=== PATIENT | female | born 1975 | race American Indian/Alaskan Native ===

== ENCOUNTER 2016-06-07 08:54 | Emergency (ER) | payer OTHER ==
[~2016-06-07 08:54] MED LIST: FIBE625T PO; MIRA3350 PO
[2016-06-07 10:24] LABS: BASO % 0.5 % (0.0-1.0); EOS # 0.1 K/mm3 (0.0-0.50); EOS % 2.2 % (0.0-3.0); LARGE UNSTAINED CELL % 1.4 % (0.0-4.0); LYMPH % 31.2 % (24.0-44.0); MEAN CORPUSCULAR HEMOGLOBIN 30.5 pg (27.0-33.0); MEAN CORPUSCULAR HGB CONC 32.6 g/dl (32.0-36.5); MEAN CORPUSCULAR VOLUME 93.5 fl (80.0-96.0); MONO # 0.1 K/mm3 (0.0-0.8); MONO % 4.4 % (0.0-5.0); NEUTROPHILS # 1.9 K/mm3 (1.8-7.7); NEUTROPHILS % 60.3 % (36.0-66.0); PLATELET COUNT, AUTOMATED 284 k/mm3 (150-450); RED CELL DISTRIBUTION WIDTH 12.3 % (11.5-14.5); WHITE BLOOD COUNT 3.2 K/mm3 (4.0-10.0)
[2016-06-07 10:39] LABS: ALBUMIN 4.4 GM/DL (3.2-5.2); ALBUMIN/GLOBULIN RATIO 1.16 (1.00-1.93); ALKALINE PHOSPHATASE 60 U/L (45-117); ALT/SGPT 21 U/L (12-78); AMYLASE 91 U/L (25-115); ANION GAP 10 MEQ/L (8-16); AST/SGOT 15 U/L (15-37); BILIRUBIN,DIRECT 0.2 MG/DL (0.0-0.2); BILIRUBIN,TOTAL 0.7 MG/DL (0.2-1.0); BLOOD UREA NITROGEN 7 MG/DL (7-18); CALCIUM LEVEL 9.6 MG/DL (8.5-10.1); CARBON DIOXIDE LEVEL 26 MEQ/L (21-32); CHLORIDE LEVEL 105 MEQ/L (98-107); CREATININE FOR GFR 0.82 MG/DL (0.55-1.02); GLOMERULAR FILTRATION RATE > 60.0 (>58); GLUCOSE, FASTING 92 MG/DL (70-105); SODIUM LEVEL 141 MEQ/L (136-145); TOTAL PROTEIN 8.2 GM/DL (6.4-8.2)
--- NOTE | 2016-06-07 11:31 | REP ---
Right upper quadrant sonography: History: Right upper quadrant pain. History of cholecystectomy. No comparison studies. Findings: Scanning through the right upper quadrant of the abdomen demonstrates a normal sized homogeneous liver without focal defect. Gallbladder is surgically absent. Common bile duct is normal measuring 0.3 cm in greatest diameter. No pancreatic abnormality is seen. There is no evidence of ascites or right renal abnormality. The right kidney measures 11.3 x 4.6 x 4.2 cm. Impression: Negative right upper quadrant sonography in this patient status post cholecystectomy. Signed by Tru Alexandre MD 06/07/2016 02:39 P
--- NOTE | 2016-06-07 11:33 | REP ---
Abdominal series: Three views. History: Right upper quadrant pain, pleurisy, question constipation. Findings: Upright chest radiograph is normal. There is no evidence of infiltrate or free subdiaphragmatic air. Heart size is normal. Supine and erect views of the abdomen show clips in the right upper quadrant as well as in the left flank and in the pelvis. Bowel gas pattern is normal. No air-fluid levels are seen. Flank stripes are intact. Psoas margins are symmetric. No bony abnormality is seen. Impression: Scattered postoperative clips. No acute abnormality. Signed by Tru Alexandre MD 06/07/2016 02:40 P
--- NOTE | 2016-06-07 11:42 | EDDOCDS ---
Nurse's Notes [facility] Name: Reshma Osei Age: 40 yrs Sex: Female : 1975 Arrival Date: 06/07/2016 Time: 08:54 Bed PR1 / 25 Private MD: Diagnosis: Pleurisy-VS MUSCLE STRAIN OF RIGHT INTERCOSTAL MUSCLES Presentation: 06/07 09:20 Presenting complaint: Patient states: c/o RUQ abd pain since Friday - was seen by PMD j Weds for same. today pain worse. denies nausea vomiting. pain constant dull pain. pain worse with deep inspiration. + cough. + hot / cold at home. Acute neurological deficits are not present. Mechanism of Injury: No Mechanism of Injury. Suicide/Homicide risk assessment- the patient denies having any suicidal and/or homicidal ideations and does not present with any other emotional, behavioral or mental health complaints. Status: The patient is a dependent. Transition of care: patient was not received from another setting of care. 09:20 Acuity: BRANDON Level 3 [facility] 09:20 Method Of Arrival: Walkin/Carried/Asstd [facility] 09:26 Adult Sepsis Screening: The patient does not have new or worsening altered mentation. bcj Patient's respiratory rate is less than 22. Systolic blood pressure is greater than 100. Patient has a qSOFA score of 0- Negative Sepsis Screen. Triage Assessment: 09:23 General: Appears in no apparent distress, comfortable, Behavior is cooperative. Pain: j Location: right lateral posterior chest and right lateral anterior chest Pain currently is 2 out of 10 on a pain scale. HIV screening NA for this visit Offered previously. Musculoskeletal: No deficits noted. 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 none - PMHx: none; - PSHx: Cholecystectomy; - Social history: Smoking status: Patient states was never smoker of tobacco. No barriers to communication noted, The patient speaks fluent Nigerien, Speaks appropriately for age. - Family history: Not pertinent. - : The pt / caregiver states he / she is not on anticoagulants. Home medication list is obtained from the patient. - Exposure Risk Screening:: None identified. Screenin:40 Screening information is obtained from the patient. Fall risk: No risks identified. [facility] Assistance ADL's: requires no assistance with activities of daily living. Abuse/DV Screen: The patient / caregiver reports he/she is: not in a situation that causes fear, pain or injury. Nutritional screening: No deficits noted. Advance Directives: Currently, there is no health care proxy. There is no active DNR order. There is no living will. There is no Power of Gasoline Service Attendant. Advance directive information has not previously been placed in an [facility] medical record. Further advance directive information is declined. home support is adequate. Assessment: 11:39 General: Appears in no apparent distress, Behavior is cooperative. Pain: Location: [facility] right upper quadrant Pain currently is 6 out of 10 on a pain scale. Neurological: Level of Consciousness is awake, alert, Oriented to person, place, time. Respiratory: Airway is patent Respiratory effort is even, unlabored, Respiratory pattern is regular, symmetrical, Breath sounds are clear bilaterally. GI: Bowel sounds present X 4 quads. Vital Signs: 09:26 BP 117 / 89; Pulse 91; Resp 16; Temp 99.4(O); Pulse Ox 99% on R/A; Weight 81.19 kg; [facility] Height 5 ft. 11 in. (180.34 cm); Pain 2/10; 11:18 BP 110 / 72; Pulse 76; Resp 18; Temp 97.6(O); Pulse Ox 100% on R/A; Pain 2/10; ct3 09:26 Body Mass Index 24.97 (81.19 kg, 180.34 cm) [facility] Vitals: 09:23 Log In Time: June 07, 2016 at 08:50. [facility] ED Course: 08:55 Patient visited by Radha Loo. mm15 08:55 Patient moved to Waiting mm15 09:13 Patient moved to Pre E elp 09:22 Triage Initiated bcj 09:24 Patient visited by Supa Bishop RN. bcj 09:26 Patient moved to Triage 1 bc 09:27 Patient visited by Supa Bishop RN. j 09:27 [facility]ust[facility] ar2 09:27 Florencio Ken MD is Attending Physician. ar2 09:39 Patient visited by Agustín Dutton PA-C. ar2 10:07 Patient moved to TR2 dwg 10:07 D-Dimer Quant Sent. dwg 10:07 Amylase Sent. dwg 10:07 Basic Metabolic Profile Sent. dwg 10:07 CBC with Diff Sent. dwg 10:07 Lipase Sent. dwg 10:07 Liver Profile Sent. dwg 10:47 Patient visited by Isamar Logan PCA. ct3 11:10 Patient moved to jmk 11:18 Patient visited by Isamar Logan PCA. ct3 11:41 The patient / caregiver is instructed regarding the plan of care and ED course. dwg 11:41 No IV's were initiated during this patient's visit. No procedures done that require dwg assistance. Order Results: Lab Order: Amylase; SPEC'M 06/07/16 10:07 Test: AMYLASE; Value: 91; Range: 25-115; Units: U/L; Status: F Lab Order: Basic Metabolic Profile; SPEC'M 06/07/16 10:07 Test: GLUCOSE, FASTING; Value: 92; Range: 70-105; Units: MG/DL; Status: F Test: BLOOD UREA NITROGEN; Value: 7; Range: 7-18; Units: MG/DL; Status: F Test: CREATININE FOR GFR; Value: 0.82; Range: 0.55-1.02; Units: MG/DL; Status: F Test: GLOMERULAR FILTRATION RATE; Value: > 60.0; Range: >58; Status: F Test: SODIUM LEVEL; Value: 141; Range: 136-145; Units: MEQ/L; Status: F Test: POTASSIUM SERUM; Value: 4.0; Range: 3.5-5.1; Units: MEQ/L; Status: F Test: CHLORIDE LEVEL; Value: 105; Range: 98-107; Units: MEQ/L; Status: F Test: CARBON DIOXIDE LEVEL; Value: 26; Range: 21-32; Units: MEQ/L; Status: F Test: ANION GAP; Value: 10; Range: 8-16; Units: MEQ/L; Status: F Test: CALCIUM LEVEL; Value: 9.6; Range: 8.5-10.1; Units: MG/DL; Status: F Test Note: ; Units are mL/min/1.73 m2 Chronic Kidney Disease Staging per NKF: Stage I & II GFR >=60 Normal to Mildly Decreased Stage III GFR 30-59 Moderately Decreased Stage IV GFR 15-29 Severely Decreased Stage V GFR <15 Very Little GFR Left ESRD GFR <15 on LEAD FABRICATOR Lab Order: CBC with Diff; SPEC'M 06/07/16 10:07 Test: WHITE BLOOD COUNT; Value: 3.2; Range: 4.0-10.0; Abnormal: Below low normal; Units: K/mm3; Status: F Test: RED BLOOD COUNT; Value: 4.11; Range: 4.00-5.40; Units: M/mm3; Status: F Test: HEMOGLOBIN; Value: 12.5; Range: 12.0-16.0; Units: g/dl; Status: F Test: HEMATOCRIT; Value: 38.5; Range: 36.0-47.0; Units: %; Status: F Test: MEAN CORPUSCULAR VOLUME; Value: 93.5; Range: 80.0-96.0; Units: fl; Status: F Test: MEAN CORPUSCULAR HEMOGLOBIN; Value: 30.5; Range: 27.0-33.0; Units: pg; Status: F Test: MEAN CORPUSCULAR HGB CONC; Value: 32.6; Range: 32.0-36.5; Units: g/dl; Status: F Test: RED CELL DISTRIBUTION WIDTH; Value: 12.3; Range: 11.5-14.5; Units: %; Status: F Test: PLATELET COUNT, AUTOMATED; Value: 284; Range: 150-450; Units: k/mm3; Status: F Test: NEUTROPHILS %; Value: 60.3; Range: 36.0-66.0; Units: %; Status: F Test: LYMPH %; Value: 31.2; Range: 24.0-44.0; Units: %; Status: F Test: MONO %; Value: 4.4; Range: 0.0-5.0; Units: %; Status: F Test: EOS %; Value: 2.2; Range: 0.0-3.0; Units: %; Status: F Test: BASO %; Value: 0.5; Range: 0.0-1.0; Units: %; Status: F Test: LARGE UNSTAINED CELL %; Value: 1.4; Range: 0.0-4.0; Units: %; Status: F Test: NEUTROPHILS #; Value: 1.9; Range: 1.8-7.7; Units: K/mm3; Status: F Test: LYMPH #; Value: 1.0; Range: 1.5-4.5; Abnormal: Below low normal; Units: K/mm3; Status: F Test: MONO #; Value: 0.1; Range: 0.0-0.8; Units: K/mm3; Status: F Test: EOS #; Value: 0.1; Range: 0.0-0.50; Units: K/mm3; Status: F Test: BASO #; Value: 0.0; Range: 0.0-0.2; Units: K/mm3; Status: F Test: LARGE UNSTAINED CELL #; Value: 0.0; Range: 0.0-0.4; Units: K/mm3; Status: F Lab Order: Lipase; SPEC'M 06/07/16 10:07 Test: LIPASE; Value: 85; Range: 73-393; Units: U/L; Status: F Lab Order: Liver Profile; SPEC'M 06/07/16 10:07 Test: AST/SGOT; Value: 15; Range: 15-37; Units: U/L; Status: F Test: ALT/SGPT; Value: 21; Range: 12-78; Units: U/L; Status: F Test: ALKALINE PHOSPHATASE; Value: 60; Range: 45-117; Units: U/L; Status: F Test: BILIRUBIN,TOTAL; Value: 0.7; Range: 0.2-1.0; Units: MG/DL; Status: F Test: BILIRUBIN,DIRECT; Value: 0.2; Range: 0.0-0.2; Units: MG/DL; Status: F Test: TOTAL PROTEIN; Value: 8.2; Range: 6.4-8.2; Units: GM/DL; Status: F Test: ALBUMIN; Value: 4.4; Range: 3.2-5.2; Units: GM/DL; Status: F Test: ALBUMIN/GLOBULIN RATIO; Value: 1.16; Range: 1.00-1.93; Status: F Lab Order: D-Dimer Quant; SPEC'M 06/07/16 10:07 Test: D-DIMER QUANT; Value: 294.9; Range: <500; Units: ng/ml; Status: F Outcome: 11:29 Discharge ordered by Provider. ar2 11:41 Discharge Assessment: Patient awake, alert and oriented x 3. No cognitive and/or dwg functional deficits noted. Patient verbalized understanding of disposition instructions. patient administered narcotics - no. The following High Risk Discharge criteria are identified: None. Discharged to home ambulatory. Condition: good Condition: stable. No special radiology studies were completed. Property sent home with patient. 11:41 Patient left the ED. dwg Signatures: Luis Nichols, RN RN Supa Moy, RN RN Jeremías Phelps,RN RN Agustín Garrett, MEAGHAN PA-Juana ar2 Isamar Logan, CERTIFIED INDUSTRIAL HYGIENIST CERTIFIED INDUSTRIAL HYGIENIST ct3 Radha Loo mm15 Janett Forte, CERTIFIED INDUSTRIAL HYGIENIST CERTIFIED INDUSTRIAL HYGIENIST elp MTDD
--- NOTE | 2016-06-07 11:42 | EDDOCDS ---
Physician Documentation [facility] Name: Reshma Osei Age: 40 yrs Sex: Female : 1975 Arrival Date: 06/07/2016 Time: 08:54 Bed PR Private MD: Disposition: 06/07/16 11:29 Discharged to Home/Self Care. Impression: Pleurisy - VS MUSCLE STRAIN OF RIGHT INTERCOSTAL MUSCLES. - Condition is Stable. - Discharge Instructions: Muscle Strain, Pleurisy. - Medication Reconciliation, Local Pharmacy Hours form. - Follow up: Private Physician; When: Call to arrange an appointment; Reason: Recheck today's complaints. Follow up: Emergency Department; When: As needed; Reason: Fever > 102F, Trouble breathing, Worsening of conditions. - Problem is new. - Symptoms are unchanged. Historical: - Allergies: no known allergies; - Home Meds: 1. none - PMHx: none; - PSHx: Cholecystectomy; - Social history: Smoking status: Patient states was never smoker of tobacco. No barriers to communication noted, The patient speaks fluent German, Speaks appropriately for age. - Family history: Not pertinent. - : The pt / caregiver states he / she is not on anticoagulants. Home medication list is obtained from the patient. - Exposure Risk Screening:: None identified. 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 11 in. (180.34 cm); Pain 2/10; 11:18 BP 110 / 72; Pulse 76; Resp 18; Temp 97.6(O); Pulse Ox 100% on R/A; Pain 2/10; ct3 09:26 Body Mass Index 24.97 (81.19 kg, 180.34 cm) [facility] MDM: 09:51 Amylase Ordered. EDMS 09:51 Basic Metabolic Profile Ordered. EDMS 09:51 CBC with Diff Ordered. EDMS 09:51 Lipase Ordered. EDMS 09:51 Liver Profile Ordered. EDMS 09:51 Liver US Ordered. EDMS 09:51 Abdomen, Flat\E\Upright,PA Chest Ordered. EDMS 09:52 D-Dimer Quant Ordered. EDMS 10:10 Financial registration complete. mm15 10:54 CBC with Diff Reviewed. ar2 10:54 Amylase Reviewed. ar2 10:54 Basic Metabolic Profile Reviewed. ar2 10:54 Lipase Reviewed. ar2 10:54 Liver Profile Reviewed. ar2 10:54 D-Dimer Quant Reviewed. ar2 Signatures: Dispatcher [employer] [facility] Luis Nichols RN RN dwg Johnson, Bruce, RN RN Agustín Ruvalcaba, PA-Juana PA-C ar2 Radha Loo mm15 MTDD
--- NOTE | 2016-06-09 12:42 | EDDOCDS ---
Nurse's Notes [facility] Name: Reshma Osei Age: 40 yrs Sex: Female : 1975 Arrival Date: 06/07/2016 Time: 08:54 Bed PR1 / 25 Private MD: Diagnosis: Pleurisy-VS MUSCLE STRAIN OF RIGHT INTERCOSTAL MUSCLES Presentation: 06/07 09:20 Presenting complaint: Patient states: c/o RUQ abd pain since Friday - was seen by PMD j Weds for same. today pain worse. denies nausea vomiting. pain constant dull pain. pain worse with deep inspiration. + cough. + hot / cold at home. Acute neurological deficits are not present. Mechanism of Injury: No Mechanism of Injury. Suicide/Homicide risk assessment- the patient denies having any suicidal and/or homicidal ideations and does not present with any other emotional, behavioral or mental health complaints. Status: The patient is a dependent. Transition of care: patient was not received from another setting of care. 09:20 Acuity: BRANDON Level 3 [facility] 09:20 Method Of Arrival: Walkin/Carried/Asstd [facility] 09:26 Adult Sepsis Screening: The patient does not have new or worsening altered mentation. bcj Patient's respiratory rate is less than 22. Systolic blood pressure is greater than 100. Patient has a qSOFA score of 0- Negative Sepsis Screen. Triage Assessment: 09:23 General: Appears in no apparent distress, comfortable, Behavior is cooperative. Pain: j Location: right lateral posterior chest and right lateral anterior chest Pain currently is 2 out of 10 on a pain scale. HIV screening NA for this visit Offered previously. Musculoskeletal: No deficits noted. 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 none - PMHx: none; - PSHx: Cholecystectomy; - Social history: Smoking status: Patient states was never smoker of tobacco. No barriers to communication noted, The patient speaks fluent Anguillan, Speaks appropriately for age. - Family history: Not pertinent. - : The pt / caregiver states he / she is not on anticoagulants. Home medication list is obtained from the patient. - Exposure Risk Screening:: None identified. Screenin:40 Screening information is obtained from the patient. Fall risk: No risks identified. [facility] Assistance ADL's: requires no assistance with activities of daily living. Abuse/DV Screen: The patient / caregiver reports he/she is: not in a situation that causes fear, pain or injury. Nutritional screening: No deficits noted. Advance Directives: Currently, there is no health care proxy. There is no active DNR order. There is no living will. There is no Power of Marketing Finance Specialist. Advance directive information has not previously been placed in an [facility] medical record. Further advance directive information is declined. home support is adequate. Assessment: 11:39 General: Appears in no apparent distress, Behavior is cooperative. Pain: Location: [facility] right upper quadrant Pain currently is 6 out of 10 on a pain scale. Neurological: Level of Consciousness is awake, alert, Oriented to person, place, time. Respiratory: Airway is patent Respiratory effort is even, unlabored, Respiratory pattern is regular, symmetrical, Breath sounds are clear bilaterally. GI: Bowel sounds present X 4 quads. Vital Signs: 09:26 BP 117 / 89; Pulse 91; Resp 16; Temp 99.4(O); Pulse Ox 99% on R/A; Weight 81.19 kg; [facility] Height 5 ft. 11 in. (180.34 cm); Pain 2/10; 11:18 BP 110 / 72; Pulse 76; Resp 18; Temp 97.6(O); Pulse Ox 100% on R/A; Pain 2/10; ct3 09:26 Body Mass Index 24.97 (81.19 kg, 180.34 cm) [facility] Vitals: 09:23 Log In Time: June 07, 2016 at 08:50. [facility] ED Course: 08:55 Patient visited by Radha Loo. mm15 08:55 Patient moved to Waiting mm15 09:13 Patient moved to Pre E elp 09:22 Triage Initiated bcj 09:24 Patient visited by Supa Bishop RN. bcj 09:26 Patient moved to Triage 1 bc 09:27 Patient visited by Supa Bishop RN. j 09:27 Agustín Dutton [facility]-C [facility]. ar2 09:27 Florencio Ken MD is Attending Physician. ar2 09:39 Patient visited by Agustín Dutton PA-C. ar2 10:07 Patient moved to TR2 dwg 10:07 D-Dimer Quant Sent. dwg 10:07 Amylase Sent. dwg 10:07 Basic Metabolic Profile Sent. dwg 10:07 CBC with Diff Sent. dwg 10:07 Lipase Sent. dwg 10:07 Liver Profile Sent. dwg 10:47 Patient visited by Isamar Logan PCA. ct3 11:10 Patient moved to PR / jmk 11:18 Patient visited by Isamar Logan PCA. ct3 11:41 The patient / caregiver is instructed regarding the plan of care and ED course. dwg 11:41 No IV's were initiated during this patient's visit. No procedures done that require dwg assistance. 11:50 [facility] Payment Agreement was scanned into [employer] and attached to record. mm15 12:05 Liver US Returned. EDMS 12:05 Abdomen, Flat\E\Upright,PA Chest Returned. EDMS 14:28 T-Sheet-- Draft Copy was scanned into [employer] and attached to record. gb 14:28 Radiology Report was scanned into [employer] and attached to record. gb Order Results: Lab Order: Amylase; SPEC'M 06/07/16 10:07 Test: AMYLASE; Value: 91; Range: 25-115; Units: U/L; Status: F Lab Order: Basic Metabolic Profile; SPEC'M 06/07/16 10:07 Test: GLUCOSE, FASTING; Value: 92; Range: 70-105; Units: MG/DL; Status: F Test: BLOOD UREA NITROGEN; Value: 7; Range: 7-18; Units: MG/DL; Status: F Test: CREATININE FOR GFR; Value: 0.82; Range: 0.55-1.02; Units: MG/DL; Status: F Test: GLOMERULAR FILTRATION RATE; Value: > 60.0; Range: >58; Status: F Test: SODIUM LEVEL; Value: 141; Range: 136-145; Units: MEQ/L; Status: F Test: POTASSIUM SERUM; Value: 4.0; Range: 3.5-5.1; Units: MEQ/L; Status: F Test: CHLORIDE LEVEL; Value: 105; Range: 98-107; Units: MEQ/L; Status: F Test: CARBON DIOXIDE LEVEL; Value: 26; Range: 21-32; Units: MEQ/L; Status: F Test: ANION GAP; Value: 10; Range: 8-16; Units: MEQ/L; Status: F Test: CALCIUM LEVEL; Value: 9.6; Range: 8.5-10.1; Units: MG/DL; Status: F Test Note: ; Units are mL/min/1.73 m2 Chronic Kidney Disease Staging per NKF: Stage I & II GFR >=60 Normal to Mildly Decreased Stage III GFR 30-59 Moderately Decreased Stage IV GFR 15-29 Severely Decreased Stage V GFR <15 Very Little GFR Left ESRD GFR <15 on TECHNOLOGY DEVELOPMENT INTERN Lab Order: CBC with Diff; SPEC'M 06/07/16 10:07 Test: WHITE BLOOD COUNT; Value: 3.2; Range: 4.0-10.0; Abnormal: Below low normal; Units: K/mm3; Status: F Test: RED BLOOD COUNT; Value: 4.11; Range: 4.00-5.40; Units: M/mm3; Status: F Test: HEMOGLOBIN; Value: 12.5; Range: 12.0-16.0; Units: g/dl; Status: F Test: HEMATOCRIT; Value: 38.5; Range: 36.0-47.0; Units: %; Status: F Test: MEAN CORPUSCULAR VOLUME; Value: 93.5; Range: 80.0-96.0; Units: fl; Status: F Test: MEAN CORPUSCULAR HEMOGLOBIN; Value: 30.5; Range: 27.0-33.0; Units: pg; Status: F Test: MEAN CORPUSCULAR HGB CONC; Value: 32.6; Range: 32.0-36.5; Units: g/dl; Status: F Test: RED CELL DISTRIBUTION WIDTH; Value: 12.3; Range: 11.5-14.5; Units: %; Status: F Test: PLATELET COUNT, AUTOMATED; Value: 284; Range: 150-450; Units: k/mm3; Status: F Test: NEUTROPHILS %; Value: 60.3; Range: 36.0-66.0; Units: %; Status: F Test: LYMPH %; Value: 31.2; Range: 24.0-44.0; Units: %; Status: F Test: MONO %; Value: 4.4; Range: 0.0-5.0; Units: %; Status: F Test: EOS %; Value: 2.2; Range: 0.0-3.0; Units: %; Status: F Test: BASO %; Value: 0.5; Range: 0.0-1.0; Units: %; Status: F Test: LARGE UNSTAINED CELL %; Value: 1.4; Range: 0.0-4.0; Units: %; Status: F Test: NEUTROPHILS #; Value: 1.9; Range: 1.8-7.7; Units: K/mm3; Status: F Test: LYMPH #; Value: 1.0; Range: 1.5-4.5; Abnormal: Below low normal; Units: K/mm3; Status: F Test: MONO #; Value: 0.1; Range: 0.0-0.8; Units: K/mm3; Status: F Test: EOS #; Value: 0.1; Range: 0.0-0.50; Units: K/mm3; Status: F Test: BASO #; Value: 0.0; Range: 0.0-0.2; Units: K/mm3; Status: F Test: LARGE UNSTAINED CELL #; Value: 0.0; Range: 0.0-0.4; Units: K/mm3; Status: F Lab Order: Lipase; SPEC'M 06/07/16 10:07 Test: LIPASE; Value: 85; Range: 73-393; Units: U/L; Status: F Lab Order: Liver Profile; SPEC'M 06/07/16 10:07 Test: AST/SGOT; Value: 15; Range: 15-37; Units: U/L; Status: F Test: ALT/SGPT; Value: 21; Range: 12-78; Units: U/L; Status: F Test: ALKALINE PHOSPHATASE; Value: 60; Range: 45-117; Units: U/L; Status: F Test: BILIRUBIN,TOTAL; Value: 0.7; Range: 0.2-1.0; Units: MG/DL; Status: F Test: BILIRUBIN,DIRECT; Value: 0.2; Range: 0.0-0.2; Units: MG/DL; Status: F Test: TOTAL PROTEIN; Value: 8.2; Range: 6.4-8.2; Units: GM/DL; Status: F Test: ALBUMIN; Value: 4.4; Range: 3.2-5.2; Units: GM/DL; Status: F Test: ALBUMIN/GLOBULIN RATIO; Value: 1.16; Range: 1.00-1.93; Status: F Lab Order: D-Dimer Quant; HAMLET 06/07/16 10:07 Test: D-DIMER QUANT; Value: 294.9; Range: <500; Units: ng/ml; Status: F Radiology Order: Abdomen, Flat\E\Upright,PA Chest Test: Abdomen, Flat\E\Upright,PA Chest REASON FOR EXAMINATION: RUQ/pleurisy/? constipation; Abdominal series: Three views.; ; History: Right upper quadrant pain, pleurisy, question constipation.; ; Findings: Upright chest radiograph is normal. There is no evidence of; infiltrate or free subdiaphragmatic air. Heart size is normal.; ; Supine and erect views of the abdomen show clips in the right upper quadrant as; well as in the left flank and in the pelvis. Bowel gas pattern is normal. No; air-fluid levels are seen. Flank stripes are intact. Psoas margins are; symmetric. No bony abnormality is seen.; ; Impression:; ; Scattered postoperative clips. No acute abnormality.; ; ; Signed by; Tru Alexandre MD 06/07/2016 02:40 P; Radiology Order: Liver US Test: Liver US REASON FOR EXAMINATION: ruq pain, hx cholecystectomy; Right upper quadrant sonography:; ; History: Right upper quadrant pain. History of cholecystectomy. No comparison; studies.; ; Findings: Scanning through the right upper quadrant of the abdomen demonstrates; a normal sized homogeneous liver without focal defect. Gallbladder is surgically; absent. Common bile duct is normal measuring 0.3 cm in greatest diameter. No; pancreatic abnormality is seen. There is no evidence of ascites or right renal; abnormality. The right kidney measures 11.3 x 4.6 x 4.2 cm.; ; Impression:; ; Negative right upper quadrant sonography in this patient status post; cholecystectomy.; ; ; Signed by; Tru Alexandre MD 06/07/2016 02:39 P; Outcome: 11:29 Discharge ordered by Provider. ar2 11:41 Discharge Assessment: Patient awake, alert and oriented x 3. No cognitive and/or dwg functional deficits noted. Patient verbalized understanding of disposition instructions. patient administered narcotics - no. The following High Risk Discharge criteria are identified: None. Discharged to home ambulatory. Condition: good Condition: stable. No special radiology studies were completed. Property sent home with patient. 11:41 Patient left the ED. g Signatures: Dispatcher [employer] Luis Schmidt RN RN dwg Johnson, Bruce RN RN Jeremías Phelps,RN RN Rachel Conklin, [place] Reg Agustín Macdonald PA-C PAHannah ar2 Logan, Isamar, CHASSIS MECHANIC CHASSIS MECHANIC ct3 Loo, Mitrann mm15 Patchen, Janett, CHASSIS MECHANIC CHASSIS MECHANIC elp Chart Complete MTDD
--- NOTE | 2016-06-09 12:42 | EDDOCDS ---
Physician Documentation [facility] Name: Reshma Osei Age: 40 yrs Sex: Female : 1975 Arrival Date: 06/07/2016 Time: 08:54 Bed PR Private MD: Disposition: 06/07/16 11:29 Discharged to Home/Self Care. Impression: Pleurisy - VS MUSCLE STRAIN OF RIGHT INTERCOSTAL MUSCLES. - Condition is Stable. - Discharge Instructions: Muscle Strain, Pleurisy. - Medication Reconciliation, Local Pharmacy Hours form. - Follow up: Private Physician; When: Call to arrange an appointment; Reason: Recheck today's complaints. Follow up: Emergency Department; When: As needed; Reason: Fever > 102F, Trouble breathing, Worsening of conditions. - Problem is new. - Symptoms are unchanged. Historical: - Allergies: no known allergies; - Home Meds: 1. none - PMHx: none; - PSHx: Cholecystectomy; - Social history: Smoking status: Patient states was never smoker of tobacco. No barriers to communication noted, The patient speaks fluent Argentine, Speaks appropriately for age. - Family history: Not pertinent. - : The pt / caregiver states he / she is not on anticoagulants. Home medication list is obtained from the patient. - Exposure Risk Screening:: None identified. 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 11 in. (180.34 cm); Pain 2/10; 11:18 BP 110 / 72; Pulse 76; Resp 18; Temp 97.6(O); Pulse Ox 100% on R/A; Pain 2/10; ct3 09:26 Body Mass Index 24.97 (81.19 kg, 180.34 cm) [facility] MDM: 09:51 Amylase Ordered. EDMS 09:51 Basic Metabolic Profile Ordered. EDMS 09:51 CBC with Diff Ordered. EDMS 09:51 Lipase Ordered. EDMS 09:51 Liver Profile Ordered. EDMS 09:51 Liver US Ordered. EDMS 09:51 Abdomen, Flat\E\Upright,PA Chest Ordered. EDMS 09:52 D-Dimer Quant Ordered. EDMS 10:10 Financial registration complete. mm15 10:54 CBC with Diff Reviewed. ar2 10:54 Amylase Reviewed. ar2 10:54 Basic Metabolic Profile Reviewed. ar2 10:54 Lipase Reviewed. ar2 10:54 Liver Profile Reviewed. ar2 10:54 D-Dimer Quant Reviewed. ar2 11:50 [facility] Payment Agreement was scanned into [employer] and attached to record. mm15 14:28 T-Sheet-- Draft Copy was scanned into [employer] and attached to record. gb 14:28 Radiology Report was scanned into [employer] and attached to record. gb Signatures: Dispatcher [employer] EDMS Luis Nichols RN RN Supa Moy RN RN Rachel Whalen, Reg Reg gb Agustín Dutton, MEAGHAN HARDING ar2 Radha Loo mm15 The chart was reviewed and I authenticate all verbal orders and agree with the evaluation and treatment provided.Attachments: 11:50 [facility] Payment Agreement mm15 14:28 T-Sheet-- Draft Copy gb Chart Complete MTDD
--- NOTE | 2016-06-09 12:42 | EDDOCDS ---
Physician Documentation [facility] Name: Reshma Osei Age: 40 yrs Sex: Female : 1975 Arrival Date: 06/07/2016 Time: 08:54 Bed PR Private MD: Disposition: 06/07/16 11:29 Discharged to Home/Self Care. Impression: Pleurisy - VS MUSCLE STRAIN OF RIGHT INTERCOSTAL MUSCLES. - Condition is Stable. - Discharge Instructions: Muscle Strain, Pleurisy. - Medication Reconciliation, Local Pharmacy Hours form. - Follow up: Private Physician; When: Call to arrange an appointment; Reason: Recheck today's complaints. Follow up: Emergency Department; When: As needed; Reason: Fever > 102F, Trouble breathing, Worsening of conditions. - Problem is new. - Symptoms are unchanged. Historical: - Allergies: no known allergies; - Home Meds: 1. none - PMHx: none; - PSHx: Cholecystectomy; - Social history: Smoking status: Patient states was never smoker of tobacco. No barriers to communication noted, The patient speaks fluent Omani, Speaks appropriately for age. - Family history: Not pertinent. - : The pt / caregiver states he / she is not on anticoagulants. Home medication list is obtained from the patient. - Exposure Risk Screening:: None identified. 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 11 in. (180.34 cm); Pain 2/10; 11:18 BP 110 / 72; Pulse 76; Resp 18; Temp 97.6(O); Pulse Ox 100% on R/A; Pain 2/10; ct3 09:26 Body Mass Index 24.97 (81.19 kg, 180.34 cm) [facility] MDM: 09:51 Amylase Ordered. EDMS 09:51 Basic Metabolic Profile Ordered. EDMS 09:51 CBC with Diff Ordered. EDMS 09:51 Lipase Ordered. EDMS 09:51 Liver Profile Ordered. EDMS 09:51 Liver US Ordered. EDMS 09:51 Abdomen, Flat\E\Upright,PA Chest Ordered. EDMS 09:52 D-Dimer Quant Ordered. EDMS 10:10 Financial registration complete. mm15 10:54 CBC with Diff Reviewed. ar2 10:54 Amylase Reviewed. ar2 10:54 Basic Metabolic Profile Reviewed. ar2 10:54 Lipase Reviewed. ar2 10:54 Liver Profile Reviewed. ar2 10:54 D-Dimer Quant Reviewed. ar2 11:50 [facility] Payment Agreement was scanned into [employer] and attached to record. mm15 14:28 T-Sheet-- Draft Copy was scanned into [employer] and attached to record. gb 14:28 Radiology Report was scanned into [employer] and attached to record. gb Signatures: Dispatcher [employer] EDMS Luis Nichols RN RN Supa Moy RN RN Rachel Whalen, Reg Reg gb Agustín Dutton, MEAGHAN HARDING ar2 Radha Loo mm15 The chart was reviewed and I authenticate all verbal orders and agree with the evaluation and treatment provided.Attachments: 11:50 [facility] Payment Agreement mm15 14:28 T-Sheet-- Draft Copy gb Chart Complete MTDD
== END 2016-06-07 11:41 | disposition home or self-care (01) ==
LOC: M ED 08:54
DX: R09.1 Pleurisy (principal); S29.011A Strain of muscle and tendon of front wall of thorax, initial encounter; X58.XXXA Exposure to other specified factors, initial encounter; Y92.89 Other specified places as the place of occurrence of the external cause; Y93.89 Activity, other specified; Y99.8 Other external cause status; K59.00 Constipation, unspecified

== ENCOUNTER → 2016-07-22 | Outpatient (CLI) | payer OTHER ==
--- NOTE | 2016-07-22 16:16 | REP ---
HYSTER SONOGRAPHY: History: Abnormal uterine bleeding. No comparison studies. Procedure: Transvaginal sonography is performed prior to and following the insertion of endometrial catheter by the referring bilingual counter sales retail. Saline was injected and real time scanning was performed in my presence. Findings: Pre-injection imaging demonstrates mild uterine enlargement with dimensions of 10.4 x 7.4 x 7.8 cm. Uterine texture is somewhat heterogeneous. There is a 3.4 x 2.3 x 3.2 cm presumed fibroid posteriorly. Endometrial echo is 1.2 cm thick. Right ovary measures 5.5 x 4.4 x 5.0 cm. There is a 4.3 x 3.7 x 4.5 cm cyst in the right ovary. Left ovary measures 2.1 x 2.0 x 3.3 cm. It has a normal appearance. Resistive indices are normal at 0.46 on the right and 0.51 on the left. Post endometrial catheterization imaging shows distension of the endometrial cavity with saline. There is a nodular excrescence from the posterior fundal uterine endometrial surface. This polypoid lesion measures 16 x 7 x 16 mm. Endometrium is otherwise felt to be smooth. Impression: 1. Presumed 3.4 cm fibroid. Uterine enlargement. 2. 4.5 cm simple cyst right ovary. 3. 16 mm endometrial polyp posteriorly in the uterine fundus. Signed by Tru Alexandre MD 07/22/2016 07:45 P
== END ==
LOC: M RADPRO 13:18
PROVIDERS: ATTEND Student in an Organized Health Care Education/Training Program
DX: N85.2 Hypertrophy of uterus (principal); N83.201 Unspecified ovarian cyst, right side; N84.0 Polyp of corpus uteri

== ENCOUNTER 2016-09-23 07:50 | Emergency (ER) | payer OTHER ==
[~2016-09-23] VITALS: Ht 180.3 cm; Wt 78.0 kg
[~2016-09-23 07:50] MED LIST changes: +IBUP800T23 PO
[2016-09-23] MEDS ORDERED: NS 500 ML IV ONE (08:15)
[2016-09-23 08:48] LABS: BASO % 1.1 % (0.0-1.0); EOS # 0.2 K/mm3 (0.0-0.50); EOS % 3.6 % (0.0-3.0); LARGE UNSTAINED CELL # 0.1 K/mm3 (0.0-0.4); LARGE UNSTAINED CELL % 1.3 % (0.0-4.0); LYMPH # 1.1 K/mm3 (1.5-4.5); LYMPH % 25.1 % (24.0-44.0); MEAN CORPUSCULAR HEMOGLOBIN 29.6 pg (27.0-33.0); MEAN CORPUSCULAR HGB CONC 32.1 g/dl (32.0-36.5); MEAN CORPUSCULAR VOLUME 92.4 fl (80.0-96.0); MONO # 0.2 K/mm3 (0.0-0.8); MONO % 3.9 % (0.0-5.0); NEUTROPHILS # 2.8 K/mm3 (1.8-7.7); NEUTROPHILS % 64.9 % (36.0-66.0); PLATELET COUNT, AUTOMATED 313 k/mm3 (150-450); RED CELL DISTRIBUTION WIDTH 13.2 % (11.5-14.5); WHITE BLOOD COUNT 4.3 K/mm3 (4.0-10.0)
[2016-09-23 09:15] LABS: ALBUMIN 4.5 GM/DL (3.2-5.2); ALBUMIN/GLOBULIN RATIO 1.02 (1.00-1.93); ALKALINE PHOSPHATASE 62 U/L (45-117); ALT/SGPT 16 U/L (12-78); ANION GAP 7 MEQ/L (8-16); AST/SGOT 13 U/L (15-37); BILIRUBIN,TOTAL 0.7 MG/DL (0.2-1.0); BLOOD UREA NITROGEN 7 MG/DL (7-18); CALCIUM LEVEL 9.6 MG/DL (8.5-10.1); CARBON DIOXIDE LEVEL 27 MEQ/L (21-32); CHLORIDE LEVEL 103 MEQ/L (98-107); CREATININE FOR GFR 0.81 MG/DL (0.55-1.02); GLOMERULAR FILTRATION RATE > 60.0 (>58); GLUCOSE, FASTING 83 MG/DL (70-105); POTASSIUM SERUM 3.7 MEQ/L (3.5-5.1); SODIUM LEVEL 137 MEQ/L (136-145); TOTAL PROTEIN 8.9 GM/DL (6.4-8.2)
[2016-09-23 10:08] LABS: CONTROL LINE HCG INT CTR LINE PRESENT
[2016-09-23] MEDS ORDERED: ISOVUE-370 76% 100ML VIAL (Q9967) As Ordered ONE (10:44)
[2016-09-23 10:48] LABS: BILIRUBIN,DIRECT 0.2 MG/DL (0.0-0.2)
--- NOTE | 2016-09-23 11:53 | REP ---
CT ANGIOGRAM CHEST: TECHNIQUE: Axial contrast enhanced images from the thoracic inlet to the upper abdomen using 100 mL Isovue 370 intravenous contrast material with multiplanar reformations. Tiny 3 mm nodular opacity in the left lower lobe on image 41 is of doubtful significance. There is a tiny calcified granuloma in the right lower lobe more inferiorly. There is no infiltrate in either lung. There is no infiltrate in either lung. There is no CT evidence of pulmonary embolism. No enlarged lymph nodes are seen in the chest. Heart is not enlarged. There is no pleural or pericardial effusion. Visualized upper abdominal structures appear unremarkable. IMPRESSION: No CT evidence of pulmonary embolism. Signed by Luis Cid MD 09/24/2016 04:02 P
[2016-09-23] MEDS ORDERED: ZOFR4TAB3 PO (12:51)
[2016-09-23] MEDS ORDERED: PERC5TAB6 PO (12:52)
[2016-09-23] MEDS ORDERED: OMEP40CA2 PO (12:52)
[2016-09-23] MEDS ORDERED: PANTOPRAZOLE 40MG INJ (PROTONIX) (C9113) IV ONE (13:00)
[2016-09-23] MEDS ORDERED: PERCOCET 5MG/325MG TAB PO ONE (13:00)
[2016-09-23 13:24] VITALS: BP 101/70
--- NOTE | 2016-09-23 13:40 | ECGEPIP ---
Stationary ECG Study [facility] - ED Test Date: 2016-09-23 Pat Name: HILL CHACON Department: Room: - Gender: F Dean Of Education: rn : 1975 Requested By: ZACKERY Montano Order Number: [id number] Reading MD: Aleksey Leung Measurements Intervals [place] Rate: 78 P: 50 WI: 169 QRS: 37 QRSD: 77 T: 53 QT: 365 QTc: 418 Interpretive Statements SINUS RHYTHM Electronically Signed On 09-23-2016 13:39:49 EDT by Aleksey Leung
== END 2016-09-23 13:38 | disposition home or self-care (01) ==
LOC: M ED 09:16
DX: R10.11 Right upper quadrant pain (principal); Z79.899 Other long term (current) drug therapy
CPT/HCPCS: 71275; 80048; 80076; 81001; 82550; 82553; 83605; 83690; 84703; 85025; 93005; 93041; 96374; 99285; C9113; Q9967

== ENCOUNTER → 2016-10-09 | Day surgery (SDC) | payer OTHER ==
[~2016-10-09] VITALS: Ht 180.3 cm; Wt 78.5 kg
[~2016-10-09] MED LIST changes: +KETOROLAC 30 MG/ML VIAL (J1885) IV PRN; +KETOROLAC 60 MG/2 ML VIAL (J1885) As Ordered ONE; +LIDOCAINE 1% SDV INJ 30 ML VIAL As Ordered ONE; +LIDOCAINE 2% INJ 100 MG/5 ML SDV (FOR ANES.) As Ordered ONE; +LR 1,000 ML IV ONE; +LR 1,000 ML IV SCH; +METOCLOPRAMIDE INJ 10MG/2ML VIAL (J2765) As Ordered ONE; +METOCLOPRAMIDE INJ 10MG/2ML VIAL (J2765) IV PRN; +MIDAZOLAM INJ 2 MG/2 ML VIAL (J2250) As Ordered ONE; +MORPHINE 2 MG/ML 1ML SYRINGE IV PRN; +OMEP40CA2 PO; +ONDANSETRON 4MG/2ML VIAL (J2405) As Ordered ONE; +ONDANSETRON 4MG/2ML VIAL (J2405) IV PRN; +PERC5TAB6 PO; +PERCOCET 5MG/325MG TAB PO PRN; +PROMETHAZINE INJ 25 MG/ML VIAL (J2550) IV PRN; +PROPOFOL 200 MG/20 ML VIAL As Ordered ONE; +SILVER NITRATE APPLICATOR As Ordered ONE; +ZOFR4TAB3 PO; +ePHEDrine SULFATE 25 MG/5 ML(5MG/ML) SYRINGE As Ordered ONE; +fentaNYL 100 MCG/2 ML INJECTION (J3010) As Ordered ONE; +fentaNYL 100 MCG/2 ML INJECTION (J3010) IV PRN
[2016-10-09 09:41] LABS: MEAN CORPUSCULAR HEMOGLOBIN 30.4 pg (27.0-33.0); MEAN CORPUSCULAR HGB CONC 32.8 g/dl (32.0-36.5); MEAN CORPUSCULAR VOLUME 92.6 fl (80.0-96.0); RED CELL DISTRIBUTION WIDTH 12.9 % (11.5-14.5); WHITE BLOOD COUNT 3.5 K/mm3 (4.0-10.0)
[2016-10-09 09:49] LABS: CONTROL LINE HCG INT CTR LINE PRESENT
[2016-10-09 13:20] VITALS: BP 127/80
--- NOTE | 2016-10-10 08:14 | RO ---
DATE OF PROCEDURE: 10/09/2016 PREPROCEDURE DIAGNOSES: Abnormal uterine bleeding, possible polyp. POSTPROCEDURE DIAGNOSES: Abnormal uterine bleeding, possible polyp. PROCEDURE: Diagnostic/operative hysteroscopy, polypectomy, dilation and curettage (D and C). 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 IV FLUID: 800 mL isotonic fluid. ESTIMATED BLOOD LOSS: 15 mL. FLUID DEFICIT: Determined to be 100 mL isotonic fluid. INDICATION FOR SURGERY: Patient is a 40-year-old with abnormal uterine bleeding and ultrasound findings demonstrating likely polyp versus submucosal fibroid. Patient had previously desired Mirena IUD, however, with review of plan, patient declined this at this time. The risks, benefits, alternatives, indications were reviewed with the patient and informed consent was obtained. The patient was taken to the operating room where IV sedation was obtained without difficulty. Patient was then prepped and draped in normal sterile fashion in low lithotomy position using Matthew stirrups. After time out was performed, sterile speculum was placed in the patient's vagina. Cervix was visualized. A single tooth tenaculum was used to grasp the anterior lip of the cervix. Uterine sound was then determined to find a 9 week anteverted uterus. The cervix was then serially dilated to a Hanks dilator of 14. A hysteroscopy/hysteroscope of 30 degrees was then primed and advanced through the cervix into the ureter and up to the fundus. After ureter was distended with isotonic fluid, a 360 evaluation was done noting an approximately 1.5 cm posterior uterine polyp with no other abnormalities to include polyps or fibroids. Bilateral ostia were visualized. With the assistance of hysteroscopic scissors and grasper, the polyp was carefully taken down and removed. A gentle dilation and curettage was performed until a 360' uterine cry was noted. Hysteroscopy was then removed. Prior to the curettage, tissue was removed to be sent off for endometrial curettings as well as polyp evaluation. No bleeding noted from the cervical os. Single tooth tenaculum was then removed. All instruments were then removed from the vagina. Noted to be hemostatic at this time. A sweep demonstrated no retained instruments. Lap, sponge and needle counts correct times three. Patient was taken to the postanesthesia care unit in stable condition. [facility]
== END | disposition home or self-care (01) ==
LOC: M SDC 09:15
PROVIDERS: ATTEND Student in an Organized Health Care Education/Training Program
DX: N93.9 Abnormal uterine and vaginal bleeding, unspecified (principal); M79.645 Pain in left finger(s); K58.9 Irritable bowel syndrome, unspecified; K63.5 Polyp of colon; M25.562 Pain in left knee; R10.9 Unspecified abdominal pain; M54.5 Low back pain; R53.83 Other fatigue; M79.669 Pain in unspecified lower leg; E55.9 Vitamin D deficiency, unspecified; J30.9 Allergic rhinitis, unspecified; R20.2 Paresthesia of skin; R76.11 Nonspecific reaction to tuberculin skin test without active tuberculosis; K21.9 Gastro-esophageal reflux disease without esophagitis; Z79.899 Other long term (current) drug therapy
CPT/HCPCS: 36415; 58558; 84703; 85027; 86850; 86900; 86901; 88305; J1885; J2250; J2405; J2765; J3010

== ENCOUNTER 2017-07-24 15:14 | Emergency (ER) | payer OTHER ==
[2017-07-24 16:54] LABS: APPEARANCE, URINE CLEAR (CLEAR); BACTERIA, URINE AUTO NEGATIVE (NEGATIVE); BILIRUBIN, URINE AUTO NEGATIVE (NEGATIVE); BLOOD, URINE BLOOD NEGATIVE (NEGATIVE); COLOR, URINE YELLOW (YELLOW); GLUCOSE, URINE (UA) AUTO NEGATIVE (NEGATIVE); KETONE, URINE AUTO 2+ mg/dL (NEGATIVE); LEUKOCYTE ESTERASE, URINE AUTO NEGATIVE (NEGATIVE); MUCUS, URINE SMALL (NEGATIVE); NITRITE, URINE AUTO NEGATIVE (NEGATIVE); PROTEIN, URINE AUTO NEGATIVE (NEGATIVE); RBC, URINE AUTO 5 /HPF (0-3); SPECIFIC GRAVITY URINE AUTO 1.016 (1.002-1.035); SQUAMOUS EPITHELIAL CELL UR AU 0 /HPF (0-6); WBC, URINE AUTO 0 /HPF (0-3)
[2017-07-24 16:55] LABS: CONTROL LINE UCG INT CTR LINE PRESENT; URINE PREG TEST NEGATIVE (NEGATIVE)
[2017-07-24 17:00] LABS: BASO % 1.1 % (0.0-1.0); EOS # 0.1 10^3/uL (0.0-0.50); EOS % 2.2 % (0.0-3.0); HEMOGLOBIN 9.9 g/dl (12.0-16.0); LYMPH # 1.2 10^3/uL (1.5-4.5); LYMPH % 31.3 % (24.0-44.0); MEAN CORPUSCULAR HEMOGLOBIN 26.8 pg (27.0-33.0); MEAN CORPUSCULAR HGB CONC 30.9 g/dl (32.0-36.5); MEAN CORPUSCULAR VOLUME 86.5 fl (80.0-96.0); MONO # 0.3 10^3/uL (0.0-0.8); MONO % 8.2 % (0.0-5.0); NEUTROPHILS # 2.1 10^3/uL (1.8-7.7); NEUTROPHILS % 57.2 % (36.0-66.0); PLATELET COUNT, AUTOMATED 326 10^3/uL (150-450); RED CELL DISTRIBUTION WIDTH 14.8 % (11.5-14.5); WHITE BLOOD COUNT 3.7 10^3/uL (4.0-10.0)
[2017-07-24 17:38] LABS: ALBUMIN 4.2 GM/DL (3.2-5.2); ALBUMIN/GLOBULIN RATIO 1.05 (1.00-1.93); ALKALINE PHOSPHATASE 101 U/L (45-117); ALT/SGPT 262 U/L (12-78); ANION GAP 7 MEQ/L (8-16); AST/SGOT 177 U/L (7-37); BILIRUBIN,TOTAL 0.9 MG/DL (0.2-1.0); BLOOD UREA NITROGEN 3 MG/DL (7-18); CARBON DIOXIDE LEVEL 29 MEQ/L (21-32); CHLORIDE LEVEL 102 MEQ/L (98-107); CPK CREATINE PHOSPHOKINASE 91 U/L (26-192); CREATININE FOR GFR 0.76 MG/DL (0.55-1.30); GLOMERULAR FILTRATION RATE > 60.0 (>58); GLUCOSE, FASTING 86 MG/DL (70-100); LIPASE 70 U/L (73-393); POTASSIUM SERUM 3.1 MEQ/L (3.5-5.1); SODIUM LEVEL 138 MEQ/L (136-145); TOTAL PROTEIN 8.2 GM/DL (6.4-8.2); TROPONIN I < 0.02 NG/ML (< 0.10)
[2017-07-24 17:39] LABS: MB/CK RELATIVE INDEX 1.09 (< OR =4)
[2017-07-24] MEDS: ONDANSETRON 4 MG ORAL DISINTEGRATING TAB (S0181) PO (19:15)
[2017-07-25 11:19] LABS: HEPATITIS B SURFACE ANTIGEN NEGATIVE (NEGATIVE)
[2017-07-25 11:46] LABS: HEPATITIS C VIRUS ABY INDEX 0.1 INDEX (<0.8)
[2017-07-25 11:47] LABS: HEPATITIS B CORE ANTIBODY IGM NEGATIVE (NEGATIVE)
[2017-07-25 11:48] LABS: HEPATITIS A ANTIBODY IGM NEGATIVE (NEGATIVE)
== END 2017-07-24 19:28 | disposition home or self-care (01) ==
LOC: M ED 15:14
DX: R94.5 Abnormal results of liver function studies (principal); R10.84 Generalized abdominal pain; R11.0 Nausea; F32.9 Major depressive disorder, single episode, unspecified
CPT/HCPCS: 76705

== ENCOUNTER 2018-01-02 20:18 | Emergency (ER) | payer OTHER ==
[2018-01-03] MEDS: NS 1,000 ML IV (02:25)
[2018-01-03 02:33] LABS: BASO % 0.9 % (0.0-1.0); EOS # 0.1 10^3/uL (0.0-0.50); HEMATOCRIT 33.6 % (36.0-47.0); HEMOGLOBIN 10.4 g/dl (12.0-15.5); IMMATURE GRANULOCYTE % 0.2 % (0-3.0); LYMPH # 2.1 10^3/uL (1.5-4.5); LYMPH % 45.8 % (24.0-44.0); MEAN CORPUSCULAR VOLUME 87.3 fl (80.0-96.0); MONO # 0.4 10^3/uL (0.0-0.8); MONO % 8.4 % (0.0-5.0); NEUTROPHILS # 1.9 10^3/uL (1.8-7.7); NEUTROPHILS % 42.7 % (36.0-66.0); PLATELET COUNT, AUTOMATED 286 10^3/uL (150-450); RED BLOOD COUNT 3.85 10^6/uL (4.00-5.40); RED CELL DISTRIBUTION WIDTH 15.2 % (11.5-14.5); WHITE BLOOD COUNT 4.5 10^3/uL (4.0-10.0)
[2018-01-03 02:48] LABS: KETONE, URINE AUTO RFX 1+ mg/dL (NEGATIVE); LEUKOCYTE ESTERASE UR AUTO RFX NEGATIVE (NEGATIVE); MUCUS, URINE RFX SMALL (NEGATIVE); NITRITE, URINE AUTO RFX NEGATIVE (NEGATIVE); RBC, URINE AUTO RFX 4 /HPF (0-3); SPECIFIC GRAVITY UR AUTO RFX 1.013 (1.002-1.035); SQUAM EPITHELIAL CELL UR AURFX 3 /HPF (0-6); WBC, URINE AUTO RFX 1 /HPF (0-3)
[2018-01-03 02:52] LABS: CONTROL LINE HCG INT CTR LINE PRESENT; HCG, SERUM QUALITATIVE NEGATIVE (NEGATIVE)
[2018-01-03 03:00] LABS: ALBUMIN 4.1 GM/DL (3.2-5.2); ALBUMIN/GLOBULIN RATIO 1.08 (1.00-1.93); ALKALINE PHOSPHATASE 53 U/L (45-117); ALT/SGPT 17 U/L (12-78); ANION GAP 9 MEQ/L (8-16); AST/SGOT 15 U/L (7-37); BILIRUBIN,DIRECT 0.2 MG/DL (0.0-0.2); BILIRUBIN,TOTAL 0.7 MG/DL (0.2-1.0); BLOOD UREA NITROGEN 4 MG/DL (7-18); CARBON DIOXIDE LEVEL 27 MEQ/L (21-32); CHLORIDE LEVEL 104 MEQ/L (98-107); GLOMERULAR FILTRATION RATE > 60.0 (>58); GLUCOSE, FASTING 88 MG/DL (70-100); LIPASE 62 U/L (73-393); POTASSIUM SERUM 3.2 MEQ/L (3.5-5.1); SODIUM LEVEL 140 MEQ/L (136-145); TOTAL PROTEIN 7.9 GM/DL (6.4-8.2)
[2018-01-03] MEDS: POTASSIUM CHLORIDE 10 MEQ SR TABLET PO (03:25)
== END 2018-01-03 03:29 | disposition home or self-care (01) ==
LOC: M ED 20:18
DX: R10.11 Right upper quadrant pain (principal); K59.09 Other constipation
CPT/HCPCS: 83690

== ENCOUNTER 2018-01-14 14:30 | Emergency (ER) | payer OTHER ==
[2018-01-14 15:18] LABS: KETONE, URINE AUTO RFX NEGATIVE (NEGATIVE); LEUKOCYTE ESTERASE UR AUTO RFX NEGATIVE (NEGATIVE); MUCUS, URINE RFX SMALL (NEGATIVE); NITRITE, URINE AUTO RFX NEGATIVE (NEGATIVE); RBC, URINE AUTO RFX 3 /HPF (0-3); SPECIFIC GRAVITY UR AUTO RFX 1.004 (1.002-1.035); SQUAM EPITHELIAL CELL UR AURFX 0 /HPF (0-6); WBC, URINE AUTO RFX 0 /HPF (0-3)
[2018-01-14] MEDS: NS 1,000 ML IV (17:00)
[2018-01-14 17:29] LABS: CONTROL LINE UCG INT CTR LINE PRESENT; URINE PREG TEST NEGATIVE (NEGATIVE)
[2018-01-14 17:36] LABS: BASO % 0.7 % (0.0-1.0); EOS # 0.1 10^3/uL (0.0-0.50); EOS % 2.4 % (0.0-3.0); HEMATOCRIT 36.1 % (36.0-47.0); IMMATURE GRANULOCYTE % 0.2 % (0-3.0); LYMPH # 1.6 10^3/uL (1.5-4.5); LYMPH % 38.3 % (24.0-44.0); MEAN CORPUSCULAR HEMOGLOBIN 27.2 pg (27.0-33.0); MEAN CORPUSCULAR HGB CONC 30.5 g/dl (32.0-36.5); MEAN CORPUSCULAR VOLUME 89.4 fl (80.0-96.0); MONO # 0.3 10^3/uL (0.0-0.8); MONO % 6.1 % (0.0-5.0); NEUTROPHILS # 2.1 10^3/uL (1.8-7.7); NEUTROPHILS % 52.3 % (36.0-66.0); PLATELET COUNT, AUTOMATED 284 10^3/uL (150-450); RED BLOOD COUNT 4.04 10^6/uL (4.00-5.40); RED CELL DISTRIBUTION WIDTH 15.9 % (11.5-14.5); WHITE BLOOD COUNT 4.1 10^3/uL (4.0-10.0)
[2018-01-14 17:51] LABS: ALBUMIN 4.1 GM/DL (3.2-5.2); ALBUMIN/GLOBULIN RATIO 0.95 (1.00-1.93); ALKALINE PHOSPHATASE 57 U/L (45-117); ALT/SGPT 18 U/L (12-78); ANION GAP 9 MEQ/L (8-16); AST/SGOT 14 U/L (7-37); BILIRUBIN,DIRECT 0.2 MG/DL (0.0-0.2); BILIRUBIN,TOTAL 0.8 MG/DL (0.2-1.0); BLOOD UREA NITROGEN 4 MG/DL (7-18); CALCIUM LEVEL 9.1 MG/DL (8.5-10.1); CARBON DIOXIDE LEVEL 26 MEQ/L (21-32); CHLORIDE LEVEL 107 MEQ/L (98-107); CREATININE FOR GFR 0.74 MG/DL (0.55-1.30); GLOMERULAR FILTRATION RATE > 60.0 (>58); GLUCOSE, FASTING 80 MG/DL (70-100); LIPASE 61 U/L (73-393); POTASSIUM SERUM 3.9 MEQ/L (3.5-5.1); SODIUM LEVEL 142 MEQ/L (136-145); TOTAL PROTEIN 8.4 GM/DL (6.4-8.2)
[2018-01-14] MEDS ORDERED: ISOVUE-370 76% 100ML VIAL (Q9967) As Ordered (18:39)
[2018-01-14] MEDS: KETOROLAC TROMETHAMINE 10 MG TAB PO (20:00)
== END 2018-01-14 20:09 | disposition home or self-care (01) ==
LOC: M ED 14:30
DX: R10.9 Unspecified abdominal pain (principal); R51 Headache; K57.92 Diverticulitis of intestine, part unspecified, without perforation or abscess without bleeding
CPT/HCPCS: Q9967

== ENCOUNTER 2018-02-26 16:51 | Emergency (ER) | payer OTHER, SELFPAY ==
[2018-02-26] MEDS: METHOCARBAMOL 500 MG TAB PO (18:38)
[2018-02-26] MEDS: KETOROLAC 60 MG/2 ML VIAL (J1885) IM (18:38)
[2018-02-26 18:40] LABS: URINE PREG TEST NEGATIVE (NEGATIVE)
[2018-02-26 18:41] LABS: CONTROL LINE UCG INT CTR LINE PRESENT
[2018-02-26 18:42] LABS: KETONE, URINE AUTO RFX TRACE mg/dL (NEGATIVE); LEUKOCYTE ESTERASE UR AUTO RFX NEGATIVE (NEGATIVE); NITRITE, URINE AUTO RFX NEGATIVE (NEGATIVE); RBC, URINE AUTO RFX 0 /HPF (0-3); SPECIFIC GRAVITY UR AUTO RFX 1.001 (1.002-1.035); SQUAM EPITHELIAL CELL UR AURFX 0 /HPF (0-6); WBC, URINE AUTO RFX 0 /HPF (0-3)
== END 2018-02-26 19:37 | disposition home or self-care (01) ==
LOC: M ED 16:51
DX: S29.002A Unspecified injury of muscle and tendon of back wall of thorax, initial encounter (principal); X58.XXXA Exposure to other specified factors, initial encounter; Y92.89 Other specified places as the place of occurrence of the external cause
CPT/HCPCS: J1885

== ENCOUNTER 2018-03-27 08:44 | Day surgery (SDC) | payer OTHER ==
[2018-03-27] MEDS: NS 1,000 ML IV (09:03)
[2018-03-27] MEDS ORDERED: PROPOFOL 200 MG/20 ML VIAL As Ordered (09:51)
[2018-03-27] MEDS ORDERED: LIDOCAINE 2% INJ 100 MG/5 ML SDV (FOR ANES.) As Ordered (09:51)
== END 2018-03-27 11:32 | disposition home or self-care (01) ==
LOC: M OPP 08:44
DX: Z12.11 Encounter for screening for malignant neoplasm of colon (principal); K58.1 Irritable bowel syndrome with constipation; Q43.8 Other specified congenital malformations of intestine; Z86.010 Personal history of colon polyps; Z98.890 Other specified postprocedural states; Z80.3 Family history of malignant neoplasm of breast
CPT/HCPCS: G0105

== ENCOUNTER → 2018-08-24 | Outpatient (REF) | payer OTHER ==
[~2018-08-24] MED LIST changes: +IBUP1TAB7 PO; -IBUP800T23 PO; +IBUP80TA PO; +KETO10TAB PO; -KETOROLAC 30 MG/ML VIAL (J1885) IV PRN; -KETOROLAC 60 MG/2 ML VIAL (J1885) As Ordered ONE; -LIDOCAINE 1% SDV INJ 30 ML VIAL As Ordered ONE; -LIDOCAINE 2% INJ 100 MG/5 ML SDV (FOR ANES.) As Ordered ONE; -LR 1,000 ML IV ONE; -LR 1,000 ML IV SCH; -METOCLOPRAMIDE INJ 10MG/2ML VIAL (J2765) As Ordered ONE; -METOCLOPRAMIDE INJ 10MG/2ML VIAL (J2765) IV PRN; -MIDAZOLAM INJ 2 MG/2 ML VIAL (J2250) As Ordered ONE; -MORPHINE 2 MG/ML 1ML SYRINGE IV PRN; +MULT1TAB10 PO; -ONDANSETRON 4MG/2ML VIAL (J2405) As Ordered ONE; -ONDANSETRON 4MG/2ML VIAL (J2405) IV PRN; +PERC5TAB12 PO; -PERC5TAB6 PO; -PERCOCET 5MG/325MG TAB PO PRN; -PROMETHAZINE INJ 25 MG/ML VIAL (J2550) IV PRN; -PROPOFOL 200 MG/20 ML VIAL As Ordered ONE; +ROBA500T PO; -SILVER NITRATE APPLICATOR As Ordered ONE; +ZOFR4TAB14 PO; -ZOFR4TAB3 PO; -ePHEDrine SULFATE 25 MG/5 ML(5MG/ML) SYRINGE As Ordered ONE; -fentaNYL 100 MCG/2 ML INJECTION (J3010) As Ordered ONE; -fentaNYL 100 MCG/2 ML INJECTION (J3010) IV PRN
[2018-08-24 14:23] LABS: RHEUMATOID FACTOR QUANT < 10.0 IU/ML (<15.0); TOTAL PROTEIN 7.2 GM/DL (6.4-8.2)
[2018-08-24 14:24] LABS: VITAMIN B12 LEVEL 438 PG/ML
[2018-08-24 14:25] LABS: FOLATE > 24.0 NG/ML
[2018-08-24 14:52] LABS: HEMOGLOBIN A1c 4.8 %
[2018-08-25 09:33] LABS: DRVV SCREEN 38.1 SEC
[2018-08-25 09:50] LABS: PTT LUPUS TYPE ANTICOAG SCREEN 0.9 (0-1.2)
[2018-08-25 11:39] LABS: ALBUMIN 4.13 GM/DL (3.29-5.55); ALBUMIN % 57.4 % (55.8-66.1); ALPHA-1-GLOBULIN % 4.2 % (2.9-4.9); ALPHA-2-GLOBULINS 0.54 GM/DL (0.42-0.99); ALPHA-2-GLOBULINS % 7.5 % (7.1-11.8); BETA-1-GLOBULINS 0.51 GM/DL (0.28-0.60); BETA-1-GLOBULINS % 7.1 % (4.7-7.2); BETA-2-GLOBULINS 0.43 GM/DL (0.19-0.55); GAMMA GLOBULIN % 17.8 % (11.1-18.8); GAMMA GLOBULINS 1.28 GM/DL (0.65-1.58)
[2018-08-27 00:07] LABS: ANCA-ATYPICAL <1:20 titer (Neg:<1:20); ANTI DOUBLE STRAND-DNA AB <1 IU/mL (0-9); ANTINUCLEAR ANTIBODIES DIRECT Negative (Negative); CYTOPLASMIC NEUTROP AB ANCA-C <1:20 titer (Neg:<1:20); PERINUCLEAR AB ANCA-P <1:20 titer (Neg:<1:20); SJOGREN'S ANTI SS-A <0.2 AI (0.0-0.9); SJOGREN'S ANTI SS-B <0.2 AI (0.0-0.9)
[2018-08-27 10:13] LABS: VITAMIN E(ALPHA TOCOPHEROL) 8.8 mg/L (7.0-25.1); VITAMIN E(GAMMA TOCOPHEROL) 1.8 mg/L (0.5-5.5)
[2018-08-28 14:12] LABS: VITAMIN B1 LEVEL WHOLE BLOOD 121.2 nmol/L (66.5-200.0); VITAMIN B6,PYRIDOXAL PHOSPHATE 31.9 ug/L (2.0-32.8)
== END ==
LOC: M LABNEURO 12:06
PROVIDERS: ATTEND Psychiatry & Neurology Neurology
DX: G62.9 Polyneuropathy, unspecified (principal)

== ENCOUNTER 2018-11-03 11:59 | Emergency (ER) | payer OTHER ==
[~2018-11-03] VITALS: Ht 180.3 cm; Wt 72.7 kg
[2018-11-03] MEDS ORDERED: MIRA3350 PO (12:12)
--- NOTE | 2018-11-03 13:39 | REP ---
Limited ultrasound of the neck: Ultrasonography is performed just above the right clavicle and area where the patient feels pain/pressure. There is no nodule, mass or cyst. There are vascular structures. This is not unusual. Electronically Signed by Luis Cabrera MD 11/03/2018 01:29 P
--- NOTE | 2018-11-03 15:28 | REP ---
PA and lateral chest: Comparison is 2017. The lung mathis are clear. The cardiac size is normal. The vern, mediastinum, and skeletal structures are unremarkable. Impression: Negative PA and lateral chest. There is no interval change. Electronically Signed by Luis Cabrera MD 11/03/2018 03:19 P
[2018-11-03 16:13] VITALS: BP 124/80
[2018-11-03] MEDS ORDERED: VOLT1GEL15 TOP (16:25)
[2018-11-03] MEDS ORDERED: NAPR-885 PO (16:25)
[2018-11-03] MEDS ORDERED: ROBA500T PO (16:25)
== END 2018-11-03 16:37 | disposition home or self-care (01) ==
LOC: M ED 11:59
DX: M47.812 Spondylosis without myelopathy or radiculopathy, cervical region (principal); M62.838 Other muscle spasm; Z90.49 Acquired absence of other specified parts of digestive tract

== ENCOUNTER → 2019-01-01 | Outpatient (CLI) | payer OTHER ==
[~2019-01-01] MED LIST changes: +E-Z-GAS II EFFERVESCENT PACKET (SODIUM BICARB./CITRIC ACID/SIMETHICONE) As Ordered ONE; +E-Z-HD 98% w/w 340GM SUSP BTL As Ordered ONE; +E-Z-PAQUE 96% w/w SUSP 176GM BTL As Ordered ONE; +NAPR-885 PO; +VOLT1GEL15 TOP
--- NOTE | 2019-01-01 16:45 | REP ---
Examination Requested: Esophagram Barium Swallow Reason For Exam/Comment: Dysphasia Esophagram: The procedure was performed LOYD Smith, under the direct supervision of Dr. Azevedo. The images were reviewed with Dr. Azevedo. A single PA chest x-ray is submitted as a director state pharmacy film. The superior mediastinal structures are midline. The heart size is within normal limits. The lungs are clear. Liquid barium and gas producing granules were given in the erect position as well as liquid barium in the prone oblique position, in order to perform a double contrast esophagram examination. Oral and pharyngeal stages of the examination were unremarkable. Esophageal transport is efficient and there is no esophagitis, stricture, or mucosal ring noted. There is no hiatal hernia noted. Gastroesophageal reflux was not visualized throughout the course of the exam. Impression: 1. Unremarkable esophagram. 0.2 minutes of fluoroscopy time was utilized for this procedure. Some fluoroscopic images are performed with last image hold technology. These images require no additional radiation. Reviewed by LOYD Garcia 01/01/2019 04:29 P Electronically Signed by Srikanth Azevedo DO 01/01/2019 04:36 P
== END ==
LOC: M RAD 07:54
PROVIDERS: ATTEND Family Medicine
DX: R13.10 Dysphagia, unspecified (principal)

== ENCOUNTER 2019-10-06 17:32 | Emergency (ER) | payer OTHER ==
[~2019-10-06] VITALS: Ht 180.3 cm; Wt 78.7 kg
[~2019-10-06 17:32] MED LIST changes: -E-Z-GAS II EFFERVESCENT PACKET (SODIUM BICARB./CITRIC ACID/SIMETHICONE) As Ordered ONE; -E-Z-HD 98% w/w 340GM SUSP BTL As Ordered ONE; -E-Z-PAQUE 96% w/w SUSP 176GM BTL As Ordered ONE; -OMEP40CA2 PO; +OMEP40CA97 PO
[2019-10-06] MEDS ORDERED: NS 1,000 ML IV ONE (18:15)
[2019-10-06] MEDS ORDERED: KETOROLAC 30 MG/ML 1ML VIAL IV ONE (18:15)
[2019-10-06 18:34] LABS: EOS # 0.1 10^3/uL (0.0-0.5); EOS % 2.3 % (0.0-3.0); HEMATOCRIT 35.6 % (36.0-47.0); HEMOGLOBIN 11.1 g/dl (12.0-15.5); LYMPH # 1.5 10^3/uL (1.5-5.0); LYMPH % 37.7 % (24.0-44.0); MEAN CORPUSCULAR HEMOGLOBIN 27.5 pg (27.0-33.0); MEAN CORPUSCULAR HGB CONC 31.2 g/dl (32.0-36.5); MEAN CORPUSCULAR VOLUME 88.1 fl (80.0-96.0); MONO # 0.4 10^3/uL (0.0-0.8); MONO % 8.8 % (0.0-5.0); NEUTROPHILS % 49.9 % (36.0-66.0); PLATELET COUNT, AUTOMATED 311 10^3/uL (150-450); RED BLOOD COUNT 4.04 10^6/uL (4.00-5.40)
[2019-10-06 18:53] LABS: ALBUMIN 4.3 GM/DL (3.2-5.2); ALT/SGPT 16 U/L (12-78); BILIRUBIN,DIRECT 0.3 MG/DL (0.0-0.2); BILIRUBIN,TOTAL 0.9 MG/DL (0.2-1.0); LIPASE 37 U/L (73-393); TOTAL PROTEIN 8.4 GM/DL (6.4-8.2)
[2019-10-06] MEDS ORDERED: ISOVUE-370 76% 100ML VIAL As Ordered ONE (19:04)
--- NOTE | 2019-10-06 19:46 | REPVR ---
PROCEDURE INFORMATION: Exam: CT Abdomen And Pelvis With Contrast Exam date and time: 10/06/2019 7:20 PM Age: 44 years old Clinical indication: Abdominal pain; Flank; Right; Additional info: R flank pain TECHNIQUE: Imaging protocol: Computed tomography of the abdomen and pelvis with intravenous contrast. Radiation optimization: All CT scans at this facility use at least one of these dose optimization techniques: automated exposure control; mA and/or kV adjustment per patient size (includes targeted exams where dose is matched to clinical indication); or iterative reconstruction. Contrast material: ISOVUE 370; Contrast volume: 100 ml; Contrast route: IV; COMPARISON: CT ABD PELVIS W/O CONTRAST 01/14/2018 5:36 PM FINDINGS: Lungs: Two linear radiopaque opacities noted within the left lateral pericolic gutter unchanged from previous. Liver: Normal. No mass. Gallbladder and bile ducts: Surgical clips present within the gallbladder fossa. Gallbladder is absent. Pancreas: Normal. No ductal dilation. Spleen: 9 mm accessory spleen anterior to the spleen above the splenic hilum. Adrenals: Normal. No mass. Kidneys and ureters: Normal. No hydronephrosis. No radiopaque renal, ureteral or bladder calculi Stomach and bowel: Unremarkable. No obstruction. No mucosal thickening. Appendix: No evidence of appendicitis. Intraperitoneal space: Hazy density noted within the mesenteric fat. Vasculature: Unremarkable. No abdominal aortic aneurysm. Lymph nodes: Unremarkable. No enlarged lymph nodes. Bladder: Unremarkable as visualized. Reproductive: Unremarkable as visualized. Bones/joints: Degenerative changes noted within the lumbar spine at L3-L4 and L5-S1. Soft tissues: Unremarkable. IMPRESSION: 1. No radiopaque renal, ureteral or bladder calculi. No hydronephrosis 2. Mild stranding of the mesenteric fat without significant change from previous. Mesenteric panniculitis among the diagnostic considerations. Electronically signed by: Radha Decker On 10/06/2019 19:46:01 PM
[2019-10-06] MEDS ORDERED: predniSONE 20 MG TAB PO ONE (20:15)
[2019-10-06] MEDS ORDERED: PRED20TA PO (20:16)
[2019-10-06] MEDS ORDERED: DICY10CA13 PO (20:16)
[2019-10-06 20:25] VITALS: BP 120/68
[2019-10-06 20:28] LABS: C REACTIVE PROTEIN QUANTITATIV < 0.30 MG/DL (0.00-0.30)
[2019-10-06 20:48] LABS: ERYTHROCYTE SEDIMENTATION RATE 14 mm/hr (0-20)
== END 2019-10-06 20:26 | disposition home or self-care (01) ==
LOC: M ED 17:32
DX: D64.9 Anemia, unspecified (principal); R63.8 Other symptoms and signs concerning food and fluid intake; R10.9 Unspecified abdominal pain; Z87.19 Personal history of other diseases of the digestive system; Z90.49 Acquired absence of other specified parts of digestive tract; Z79.899 Other long term (current) drug therapy
CPT/HCPCS: 36415; 74177; 80047; 80076; 81001; 83690; 84702; 85025; 85652; 86140; 96360; 96361; 96375; 99284; J1885; Q9967

== ENCOUNTER 2020-01-11 20:26 | Emergency (ER) | payer OTHER ==
[~2020-01-11] VITALS: Ht 180.3 cm; Wt 75.0 kg
[~2020-01-11 20:26] MED LIST changes: +DICY10CA13 PO; +PRED20TA PO
[2020-01-11 20:42] LABS: URINE PREG TEST NEGATIVE (NEGATIVE)
[2020-01-11 20:59] LABS: APPEARANCE, URINE CLEAR (CLEAR); BACTERIA, URINE AUTO NEGATIVE (NEGATIVE); BILIRUBIN, URINE AUTO NEGATIVE (NEGATIVE); BLOOD, URINE BLOOD NEGATIVE (NEGATIVE); COLOR, URINE YELLOW (YELLOW); GLUCOSE, URINE (UA) AUTO NEGATIVE (NEGATIVE); KETONE, URINE AUTO 1+ mg/dL (NEGATIVE); LEUKOCYTE ESTERASE, URINE AUTO NEGATIVE (NEGATIVE); MUCUS, URINE SMALL (NEGATIVE); NITRITE, URINE AUTO NEGATIVE (NEGATIVE); PROTEIN, URINE AUTO NEGATIVE (NEGATIVE); RBC, URINE AUTO 1 /HPF (0-3); SQUAMOUS EPITHELIAL CELL UR AU 0 /HPF (0-6); UROBILINOGEN, URINE AUTO 0.2 mg/dL (0.0-2.0); WBC, URINE AUTO 0 /HPF (0-3)
[2020-01-12] MEDS ORDERED: NS 500 ML IV ONE (00:30)
[2020-01-12] MEDS ORDERED: ISOVUE-370 76% 100ML VIAL As Ordered ONE (01:00)
[2020-01-12 01:01] LABS: BASO # 0.1 10^3/uL (0.0-0.2); BASO % 0.9 % (0.0-1.0); EOS # 0.1 10^3/uL (0.0-0.5); EOS % 1.4 % (0.0-3.0); HEMATOCRIT 33.7 % (36.0-47.0); HEMOGLOBIN 10.1 g/dl (12.0-15.5); LYMPH # 2.2 10^3/uL (1.5-5.0); LYMPH % 38.1 % (24.0-44.0); MEAN CORPUSCULAR HEMOGLOBIN 26.4 pg (27.0-33.0); MEAN CORPUSCULAR VOLUME 88.2 fl (80.0-96.0); MONO # 0.5 10^3/uL (0.0-0.8); MONO % 8.3 % (0.0-5.0); NEUTROPHILS # 2.9 10^3/uL (1.5-8.5); NEUTROPHILS % 51.1 % (36.0-66.0); PLATELET COUNT, AUTOMATED 325 10^3/uL (150-450); RED BLOOD COUNT 3.82 10^6/uL (4.00-5.40); WHITE BLOOD COUNT 5.8 10^3/uL (4.0-10.0)
[2020-01-12 01:39] LABS: ALBUMIN 4.1 GM/DL (3.2-5.2); ALT/SGPT 13 U/L (12-78); BILIRUBIN,DIRECT 0.2 MG/DL (0.0-0.2); BILIRUBIN,TOTAL 0.9 MG/DL (0.2-1.0); CK-MB VALUE MASS < 1.0 NG/ML (<3.6); CPK CREATINE PHOSPHOKINASE 101 U/L (26-192); LIPASE 48 U/L (73-393); MB/CK RELATIVE INDEX 0.99 (< OR =4); TROPONIN I < 0.02 NG/ML (< 0.10)
--- NOTE | 2020-01-12 01:46 | REPVR ---
PROCEDURE INFORMATION: Exam: CT Abdomen And Pelvis With Contrast Exam date and time: 01/12/2020 1:04 AM Age: 44 years old Clinical indication: Abdominal pain; Right flank pain, negative urine TECHNIQUE: Imaging protocol: Computed tomography of the abdomen and pelvis with intravenous contrast. Radiation optimization: All CT scans at this facility use at least one of these dose optimization techniques: automated exposure control; mA and/or kV adjustment per patient size (includes targeted exams where dose is matched to clinical indication); or iterative reconstruction. Contrast material: ISO; Contrast volume: 100 ml; Contrast route: INTRAVENOUS (IV); COMPARISON: CT ABD/PEL W/IV CONTRAST ONLY 10/06/2019 7:14 PM FINDINGS: Lungs: The imaged portions of the lung bases are clear. The lungs were not fully imaged. Heart: No cardiomegaly or pericardial effusion. Diaphragm: Intact. Liver: Unremarkable. No liver lesion is identified. The contour of the liver is smooth. No hepatomegaly is noted. Gallbladder and bile ducts: There has been a cholecystectomy. There is no fluid collection in the gallbladder fossa. No dilation of the bile ducts is noted. No calcified stones are seen in the common bile duct. Pancreas: Normal. No dilation of the main pancreatic duct is noted. There is no inflammatory fat stranding around the pancreas to suggest acute pancreatitis. Spleen: Normal. No splenomegaly is noted. Incidental note is made of a small accessory spleen. Adrenals: Normal. No adrenal mass is noted. Kidneys and ureters: The kidneys are normal in appearance. No renal lesion is noted. No stones are noted in the kidneys or ureters. There is no hydronephrosis or hydroureter. There are no wedge-shaped areas of low attenuation in the kidneys to suggest pyelonephritis. There is no renal abscess or perinephric fluid collection. Stomach and bowel: The stomach and small bowel are unremarkable. There is no evidence for a bowel obstruction, diverticulosis, diverticulitis, perforated viscus, pneumatosis intestinalis, intussusception, or volvulus. There is liquid feces in the cecum, ascending colon, and transverse colon. The descending colon and rectosigmoid are decompressed, limiting their optimal evaluation. There is no pericolonic inflammatory fat stranding. Appendix: Normal. There is no evidence for appendicitis. Intraperitoneal space: There is a small amount of free fluid that measures water density in the cul-de-sac. No abscess or intraperitoneal free air is noted. There are 2 surgical clips in the left paracolic gutter, which can also be seen in prior CT on 10/06/2019. Retroperitoneal space: No fluid collection. No mass. Vasculature: The abdominal aorta is patent, normal in caliber, and there is no dissection. The iliac arteries, common femoral arteries, renal arteries, celiac artery, superior mesenteric artery, and inferior mesenteric artery are patent. Lymph nodes: Normal. No enlarged lymph nodes. Bladder: The partially distended urinary bladder is unremarkable. No stones or masses are seen in the bladder. Reproductive: The anteverted uterus measures 12.9 cm x 7.1 cm x 9.2 cm. The ovaries are unremarkable. Bones/joints: There is no fracture or dislocation. No suspicious osteolytic or osteoblastic lesion. There are degenerative changes involving the lumbar spine. Soft tissues: There is chronic thickening of the periumbilical subcutaneous tissues that is similar in appearance compared to the prior CT on 10/06/2019. IMPRESSION: 1. No acute findings in the abdomen or pelvis. Normal appendix. 2. No stones in the kidneys, ureters, or urinary bladder. No hydronephrosis or hydroureter. No CT evidence for pyelonephritis. Electronically signed by: Robert Verdin On 01/12/2020 01:46:31 AM
[2020-01-12] MEDS ORDERED: KETO10TAB PO (02:04)
[2020-01-12] MEDS ORDERED: DICY10CA13 PO (02:04)
[2020-01-12] MEDS ORDERED: KETOROLAC 30 MG/ML 1ML VIAL IV ONE (02:15)
[2020-01-12 02:30] VITALS: BP 133/71
[2020-01-14] MEDS ORDERED: ROBA750T4 PO (15:48)
[2020-01-14] MEDS ORDERED: MULTCAP PO (15:48)
--- NOTE | 2020-01-29 10:00 | ECGEPIP ---
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
--- NOTE | 2020-02-10 07:57 | REP ---
ABDOMINAL RADIOGRAPH SERIES CLINICAL: Abdominal pain, rule out obstruction. TECHNIQUE: Upright view of the chest with supine and upright views of the abdomen and pelvis. FINDINGS: Upright view of the chest demonstrates no acute cardiopulmonary process or free air below the diaphragm. Suspect pneumoperitoneum. Supine and upright views of the abdomen and pelvis demonstrate a nonspecific bowel gas pattern. Evidence for prior cholecystectomy. Phlebolith noted in the pelvis. No organomegaly. Skeletal structures are intact. IMPRESSION: Nonspecific abdominal radiographs. MTDD
== END 2020-01-12 02:30 | disposition home or self-care (01) ==
LOC: M ED 20:26
DX: R10.9 Unspecified abdominal pain (principal); K59.00 Constipation, unspecified; R94.31 Abnormal electrocardiogram [ECG] [EKG]; Z79.899 Other long term (current) drug therapy
CPT/HCPCS: 74021; 74177; 80047; 80076; 81001; 82550; 82553; 83605; 83690; 84484; 84703; 85025; 93005; 93041; 96361; 96374; 99284; J1885; Q9967

== ENCOUNTER 2020-01-17 11:07 | Day surgery (SDC) | payer OTHER ==
[~2020-01-17] VITALS: Ht 180.3 cm; Wt 74.6 kg
[~2020-01-17 11:07] MED LIST changes: +MULTCAP PO; +ROBA750T4 PO
[2020-01-17] MEDS ORDERED: propofoL 200 MG/20 ML VIAL As Ordered ONE (11:56)
[2020-01-17] MEDS ORDERED: LIDOCAINE 2% 100MG/5ML SDV (FOR ANES.) As Ordered ONE (11:56)
[2020-01-17] MEDS ORDERED: DICY10CA13 PO (11:59)
[2020-01-17] MEDS ORDERED: OMEP-218 PO (11:59)
[2020-01-17] MEDS ORDERED: NS 1,000 ML IV ONE (12:00)
[2020-01-17] MEDS ORDERED: fentaNYL 100 MCG/2 ML INJECTION (J3010) As Ordered ONE (12:19)
[2020-01-17 13:15] VITALS: BP 112/67
--- NOTE | 2020-01-26 11:37 | ROOR ---
Patient Name: Reshma Osei Procedure Date: 01/17/2020 9:31 AM Date of : 1975 Age: 44 Room: [facility] Gender: Female Note Status: Finalized Procedure: Total Colonoscopy to Cecum + ileoscopy + Bx Indications: Lower abdominal pain, Clinically significant diarrhea of unexplained origin Providers: Kash Wiggins MD Referring MD: JOLENE FERNÁNDEZ MD Requesting Provider: Medicines: Monitored Anesthesia Care Complications: No immediate complications. Procedure: Pre-Anesthesia Assessment: - The heart rate, respiratory rate, oxygen saturations, blood pressure, adequacy of pulmonary ventilation, and response to care were monitored throughout the procedure. The Colonoscope was introduced through the anus and advanced to the terminal ileum, with identification of the appendiceal orifice and IC valve. The colonoscopy was performed without difficulty. The patient tolerated the procedure well. The quality of the bowel preparation was good. Findings: The perianal and digital rectal examinations were normal. Non-bleeding internal hemorrhoids were found during retroflexion. The hemorrhoids were small and Grade I (internal hemorrhoids that do not prolapse). No other significant abnormalities were identified in a careful examination of the remainder of the colon. Biopsies for histology were taken with a cold forceps from the cecum, ascending colon, transverse colon and descending colon for evaluation of microscopic colitis. The terminal ileum appeared normal. The exam was otherwise without abnormality on direct and retroflexion views. Impression: - Non-bleeding internal hemorrhoids. - The examined portion of the ileum was normal. - The examination was otherwise normal on direct and retroflexion views. - Biopsies were taken with a cold forceps from the cecum, ascending colon, transverse colon and descending colon for evaluation of microscopic colitis. - The exam was otherwise normal to the cecum. Recommendation: - Patient has a contact number available for emergencies. The signs and symptoms of potential delayed complications were discussed with the patient. Return to normal activities tomorrow. Written discharge instructions were provided to the patient. - High fiber diet. - Discharge patient to home. - Continue present medications. - Await pathology results. - Telephone GI clinic for pathology results in 1 week. - Repeat colonoscopy in 5 years for surveillance. - Return to referring physician. - The findings and recommendations were discussed with the patient. Kash Wiggins MD Kash Wiggins MD 01/17/2020 12:51:06 PM Electronically signed by Kash Wiggins MD Number of Addenda: 0 Note Initiated On: 01/17/2020 9:31 AM Estimated Blood Loss: Estimated blood loss: none.
--- NOTE | 2020-01-26 11:37 | ROOR ---
Patient Name: Reshma Osei Procedure Date: 01/17/2020 9:31 AM Date of : 1975 Age: 44 Room: [facility] Gender: Female Note Status: Finalized Procedure: Upper Endoscopy + Biopsies Indications: Epigastric abdominal pain, Abdominal pain in the right upper quadrant, Heartburn, Weight loss Providers: Kash Wiggins MD Referring MD: JOLENE FERNÁNDEZ MD Requesting Provider: Medicines: Monitored Anesthesia Care Complications: No immediate complications. Procedure: Pre-Anesthesia Assessment: - The heart rate, respiratory rate, oxygen saturations, blood pressure, adequacy of pulmonary ventilation, and response to care were monitored throughout the procedure. The Endoscope was introduced through the mouth, and advanced to the second part of duodenum. The upper GI endoscopy was accomplished without difficulty. The patient tolerated the procedure well. Findings: The Z-line was regular and was found 45 cm from the incisors. Multiple biopsies were obtained with cold forceps for evaluation to rule out Luis's Esophagus randomly at the gastroesophageal junction. No other significant abnormalities were identified in a careful examination of the stomach. Biopsies were taken with a cold forceps in the gastric antrum for Helicobacter pylori testing. The exam of the duodenum was otherwise normal. Biopsies for histology were taken with a cold forceps in the first portion of the duodenum for evaluation of celiac disease. For hemostasis, one hemostatic clip was successfully placed (MR conditional). There was no bleeding at the end of the procedure. The exam was otherwise without abnormality. Impression: - Z-line regular, 45 cm from the incisors. - The examination was otherwise normal. - Multiple biopsies were obtained at the gastroesophageal junction. - Biopsies were taken with a cold forceps for Helicobacter pylori testing. - Biopsies were taken with a cold forceps for evaluation of celiac disease. - One hemostatic clip was successfully placed (MR conditional). - The examination was otherwise normal. Recommendation: - Patient has a contact number available for emergencies. The signs and symptoms of potential delayed complications were discussed with the patient. Return to normal activities tomorrow. Written discharge instructions were provided to the patient. - High fiber diet. - Discharge patient to home. - Follow an antireflux regimen. - Continue present medications. - Await pathology results. - Telephone GI clinic for pathology results in 1 week. - The findings and recommendations were discussed with the patient. Kash Wiggins MD Kash Wiggins MD 01/17/2020 12:35:27 PM Number of Addenda: 0 Note Initiated On: 01/17/2020 9:31 AM Estimated Blood Loss: Estimated blood loss: none.
== END 2020-01-17 13:31 | disposition home or self-care (01) ==
LOC: M OPP 11:07
PROVIDERS: ATTEND Internal Medicine Gastroenterology
DX: K64.0 First degree hemorrhoids (principal); R19.7 Diarrhea, unspecified; R10.11 Right upper quadrant pain; R12 Heartburn; R63.4 Abnormal weight loss; Z86.010 Personal history of colon polyps; Z79.899 Other long term (current) drug therapy
CPT/HCPCS: 43239; 45380; 88305; J3010

== ENCOUNTER 2020-01-17 22:25 | Emergency (ER) | payer OTHER ==
[~2020-01-17] VITALS: Ht 180.3 cm; Wt 75.4 kg
[~2020-01-17 22:25] MED LIST changes: +OMEP-218 PO
[2020-01-18] MEDS ORDERED: NS 1,000 ML IV ONE (01:30)
[2020-01-18] MEDS ORDERED: KETOROLAC 30 MG/ML 1ML VIAL IV ONE (01:30)
[2020-01-18] MEDS: GASTROGRAFIN SOLUTION 30ML PO SCH ×3 (01:50→02:10)
[2020-01-18 02:03] LABS: BASO % 0.2 % (0.0-1.0); EOS % 0.1 % (0.0-3.0); HEMATOCRIT 33.6 % (36.0-47.0); HEMOGLOBIN 10.2 g/dl (12.0-15.5); LYMPH # 1.2 10^3/uL (1.5-5.0); LYMPH % 7.4 % (24.0-44.0); MEAN CORPUSCULAR HEMOGLOBIN 26.3 pg (27.0-33.0); MEAN CORPUSCULAR HGB CONC 30.4 g/dl (32.0-36.5); MEAN CORPUSCULAR VOLUME 86.6 fl (80.0-96.0); MONO # 0.8 10^3/uL (0.0-0.8); MONO % 4.7 % (0.0-5.0); NEUTROPHILS # 14.1 10^3/uL (1.5-8.5); PLATELET COUNT, AUTOMATED 292 10^3/uL (150-450); RED BLOOD COUNT 3.88 10^6/uL (4.00-5.40); WHITE BLOOD COUNT 16.2 10^3/uL (4.0-10.0)
[2020-01-18 02:13] LABS: INR 1.04; PROTHROMBIN TIME 13.8 SECONDS (11.8-14.0)
[2020-01-18 02:14] LABS: PARTIAL THROMBOPLASTIN TIME 33.4 SECONDS (25.0-38.4)
[2020-01-18 02:41] LABS: ALBUMIN 4.3 GM/DL (3.2-5.2); ALT/SGPT 14 U/L (12-78); BILIRUBIN,DIRECT 0.3 MG/DL (0.0-0.2); BLOOD UREA NITROGEN 3 MG/DL (7-18); CALCIUM LEVEL 9.4 MG/DL (8.5-10.1); CARBON DIOXIDE LEVEL 26 MEQ/L (21-32); CHLORIDE LEVEL 104 MEQ/L (98-107); CREATININE FOR GFR 0.73 MG/DL (0.55-1.30); GLOMERULAR FILTRATION RATE > 60.0 (>58); GLUCOSE, FASTING 88 MG/DL (70-100); LIPASE 28 U/L (73-393); POTASSIUM SERUM 3.6 MEQ/L (3.5-5.1); SODIUM LEVEL 139 MEQ/L (136-145); TOTAL PROTEIN 8.2 GM/DL (6.4-8.2)
[2020-01-18] MEDS ORDERED: ISOVUE-370 76% 100ML VIAL As Ordered ONE (03:26)
--- NOTE | 2020-01-18 04:07 | REPVR ---
PROCEDURE INFORMATION: Exam: CT Abdomen And Pelvis With Contrast Exam date and time: 01/18/2020 1:28 AM Age: 44 years old Clinical indication: Abdominal pain; Generalized; Additional info: Abd pain after endoscopies TECHNIQUE: Imaging protocol: Computed tomography of the abdomen and pelvis with intravenous contrast. Radiation optimization: All CT scans at this facility use at least one of these dose optimization techniques: automated exposure control; mA and/or kV adjustment per patient size (includes targeted exams where dose is matched to clinical indication); or iterative reconstruction. Contrast material: ISO; Contrast volume: 100 ml; Contrast route: INTRAVENOUS (IV); Other contrast: Oral, ggraphin, 600; COMPARISON: CT ABD/PEL W/IV CONTRAST ONLY 01/12/2020 1:04 AM FINDINGS: Lungs: Atelectasis or scarring at the bilateral lung bases significantly more pronounced on the left. Liver: Hepatomegaly and geographic steatosis. Fat in the left hepatic lobe along the falciform ligament fissure. Gallbladder and bile ducts: Status post cholecystectomy. Pancreas: Normal. No ductal dilation. Spleen: Normal. No splenomegaly. Adrenals: Normal. No mass. Kidneys and ureters: Normal. No hydronephrosis. Stomach and bowel: Several surgical clips along the greater curvature of the stomach and duodenal bulb. No obstruction. No mucosal thickening. Appendix: No evidence of appendicitis. Intraperitoneal space: Unremarkable. No free air. No significant fluid collection. Vasculature: Unremarkable. No abdominal aortic aneurysm. Lymph nodes: Unremarkable. No enlarged lymph nodes. Bladder: Distended urinary bladder. Reproductive: Involuting hemorrhagic right ovarian corpus luteal cyst with small amount of complex fluid in the cul-de-sac. Bones/joints: degenerative disease in the lower lumbar spine. Mild stenosis of the spinal canal and neural foramina at several levels most pronounced at L5-S1. Soft tissues: Unremarkable. IMPRESSION: Involuting hemorrhagic right ovarian corpus luteal cyst with small amount of complex fluid in the cul-de-sac. Electronically signed by: Alex Plunkett On 01/18/2020 04:07:23 AM
[2020-01-18 05:22] VITALS: BP 110/68
== END 2020-01-18 05:25 | disposition home or self-care (01) ==
LOC: M ED 22:25
DX: N83.291 Other ovarian cyst, right side (principal); R50.9 Fever, unspecified; R51 Headache; Z79.899 Other long term (current) drug therapy
CPT/HCPCS: 74177; 80048; 80076; 81001; 83690; 85025; 85610; 85730; 93041; 96361; 96374; 99284; J1885; Q9963; Q9967

== ENCOUNTER 2021-02-15 08:00 | Emergency (ER) | payer OTHER ==
[~2021-02-15] VITALS: Ht 180.3 cm; Wt 80.8 kg
[~2021-02-15 08:00] MED LIST changes: +OMEP40CA4 PO; -OMEP40CA97 PO
[2021-02-15] MEDS ORDERED: ONDANSETRON 4MG/2ML VIAL IV ONE (09:10)
[2021-02-15] MEDS ORDERED: NS 1,000 ML IV ONE (09:10)
[2021-02-15] MEDS ORDERED: KETOROLAC 30 MG/ML 1ML VIAL IV ONE (09:10)
[2021-02-15 09:18] LABS: BASO % 0.6 % (0.0-1.0); EOS # 0.1 10^3/uL (0.0-0.5); EOS % 1.4 % (0.0-3.0); HEMATOCRIT 36.1 % (36.0-47.0); HEMOGLOBIN 11.1 g/dl (12.0-15.5); LYMPH # 1.2 10^3/uL (1.5-5.0); LYMPH % 32.1 % (24.0-44.0); MEAN CORPUSCULAR HEMOGLOBIN 27.3 pg (27.0-33.0); MEAN CORPUSCULAR HGB CONC 30.7 g/dl (32.0-36.5); MEAN CORPUSCULAR VOLUME 88.9 fl (80.0-96.0); MONO # 0.3 10^3/uL (0.0-0.8); MONO % 7.2 % (2.0-8.0); NEUTROPHILS # 2.1 10^3/uL (1.5-8.5); NEUTROPHILS % 58.4 % (36.0-66.0); PLATELET COUNT, AUTOMATED 342 10^3/uL (150-450); RED BLOOD COUNT 4.06 10^6/uL (4.00-5.40); WHITE BLOOD COUNT 3.6 10^3/uL (4.0-10.0)
[2021-02-15 09:58] LABS: BILIRUBIN,DIRECT 0.1 MG/DL (0.0-0.2); BILIRUBIN,TOTAL 0.5 MG/DL (0.2-1.0); TOTAL PROTEIN 8.1 GM/DL (6.4-8.2)
--- NOTE | 2021-02-15 11:33 | REP ---
INDICATION: R flank pain COMPARISON: Comparison CT study is from January 18, 2020. TECHNIQUE: Helical scanning is acquired and 3 mm axial images were reformatted. Coronal and sagittal MPR images were generated and reviewed. FINDINGS: Digital preliminary php magento developer radiograph is unremarkable. There are clips in the upper abdomen. Lung bases are clear on axial CT images. No evidence of pleural effusion or upper abdominal ascites. The liver and the spleen are normal in size homogeneous in texture. There are clips in the gallbladder fossa and there are 2 surgical clips in the left upper quadrant. No adrenal lesion is seen. No abnormality is noted in the pancreas. There is no evidence of hydronephrosis or intrarenal calculus on either side. No retroperitoneal mass or adenopathy is seen. There is moderate enlargement of the uterus. Uterine dimensions are 13.9 cm craniocaudal by 7.1 cm anterior to posterior by 10.6 cm right to left. There is a tiny amount of cul-de-sac fluid. A normal appendix is seen in the right lower quadrant. Small and large bowel loops are unremarkable in the abdomen and pelvis. No bladder calculus is seen. Pelvic phleboliths are noted. No bony destructive lesion or abdominal wall defect seen. IMPRESSION: No urinary tract calculus or hydronephrosis seen. Normal appendix seen. Post cholecystectomy. Moderate to marked enlargement of the uterus is noted, similar to the prior study. <Electronically signed by Suresh Alexandre > 02/15/21 [id number]
[2021-02-15] MEDS ORDERED: METH-1165 PO (12:07)
[2021-02-15] MEDS ORDERED: ASPE4PAD TOP (12:07)
[2021-02-15] MEDS ORDERED: LIDOCAINE 5% (LIDODERM) PATCH TD ONE ×2 (12:10→12:20)
[2021-02-15 12:14] VITALS: BP 109/69
[2021-02-15] MEDS ORDERED: **NOTE PATIENT COMMENT** MISC XX SCH (21:00)
== END 2021-02-15 12:38 | disposition home or self-care (01) ==
LOC: M ED 08:00
DX: R10.11 Right upper quadrant pain (principal); R51.9 Headache, unspecified; Z90.49 Acquired absence of other specified parts of digestive tract; N85.2 Hypertrophy of uterus
CPT/HCPCS: 74176; 80076; 81001; 83690; 84702; 85025; 96361; 96374; 96375; 99284; J1885; J2405

== ENCOUNTER → 2021-03-08 | Outpatient (CLI) | payer OTHER ==
[~2021-03-08] MED LIST changes: +ASPE4PAD TOP; +METH-1165 PO
[2021-03-08 16:21] LABS: ALBUMIN 4.2 GM/DL (3.2-5.2); ALT/SGPT 16 U/L (12-78); BILIRUBIN,DIRECT 0.2 MG/DL (0.0-0.2); BILIRUBIN,TOTAL 0.5 MG/DL (0.2-1.0); IRON (FE) 23 UG/DL (50-170); PERCENT SATURATION 4.8 % (13.2-45.0); TOTAL IRON BINDING CAPACITY 477 UG/DL (250-450); TOTAL PROTEIN 8.2 GM/DL (6.4-8.2)
[2021-03-08 17:16] LABS: HEPATITIS B SURFACE ANTIGEN NEGATIVE (NEGATIVE)
[2021-03-08 17:43] LABS: HEPATITIS B CORE ANTIBODY IGM NEGATIVE (NEGATIVE); HEPATITIS C VIRUS ABY INDEX < 0.0 INDEX (<0.8)
[2021-03-12 16:08] LABS: ANCA-ATYPICAL <1:20 titer (Neg:<1:20); ANTI-MITOCHONDRIAL ANTIBODY <20.0 Units (0.0-20.0); ANTINUCLEAR ANTIBODIES DIRECT Negative (Negative); CERULOPLASMIN 28.9 mg/dL (19.0-39.0); CYTOPLASMIC NEUTROP AB ANCA-C <1:20 titer (Neg:<1:20); LIVER-KIDNEY MICROSOMAL ABY <20.1 Units (0.0-20.0); PERINUCLEAR AB ANCA-P <1:20 titer (Neg:<1:20)
== END ==
LOC: M LAB 14:07
PROVIDERS: ATTEND Internal Medicine Gastroenterology
DX: R94.5 Abnormal results of liver function studies (principal)
CPT/HCPCS: 36415; 80076; 82390; 83550; 86038; 86255; 86256; 86376; 86705; 86709; 86803; 87340; G0463

== ENCOUNTER → 2021-03-12 | Outpatient (REF) | payer OTHER | LOC: M LAB REF 09:55 | PROVIDERS: ATTEND Internal Medicine Gastroenterology | DX: R94.5 Abnormal results of liver function studies (principal) ==

== ENCOUNTER → 2021-03-15 | Outpatient (CLI) | payer OTHER ==
--- NOTE | 2021-03-15 10:20 | REP ---
INDICATION: ELEVATED LFT'S. COMPARISON: 07/24/2017 TECHNIQUE: Real-time sonographic evaluation of the right upper quadrant with Doppler FINDINGS: Multiple ultrasonographic images of the liver show the hepatic parenchymal echo texture to appear unremarkable. There are no focal masses. There is no intrahepatic ductal dilatation. The common bile duct measures approximately 5 mm in its greatest transverse dimension. Images of the pancreatic region show no gross abnormality. The imaged portion of the right kidney is unremarkable. IMPRESSION: Unremarkable right upper quadrant ultrasound, status post cholecystectomy. Accredited by the [employer] in General Ultrasound. <Electronically signed by Srikanth Azevedo > 03/15/21 [id number]
== END ==
LOC: M RAD 06:35
PROVIDERS: ATTEND Internal Medicine Gastroenterology
DX: R94.5 Abnormal results of liver function studies (principal)

== ENCOUNTER 2021-11-06 05:59 | Inpatient (IN) | payer OTHER ==
[~2021-11-06] VITALS: Ht 180.3 cm; Wt 82.6 kg
[2021-11-06] VITALS (8 sets, daily range): BP systolic 121–141; BP diastolic 73–76
[~2021-11-06 05:59] MED LIST changes: +OMEP-173 PO; -OMEP-218 PO
[2021-11-06] MEDS ORDERED: LR 1,000 ML IV SCH ×2 (06:35→11:30)
[2021-11-06 06:36] LABS: HEMATOCRIT 33.4 % (36.0-47.0); HEMOGLOBIN 10.3 g/dl (12.0-15.5); MEAN CORPUSCULAR HEMOGLOBIN 28.6 pg (27.0-33.0); MEAN CORPUSCULAR HGB CONC 30.8 g/dl (32.0-36.5); MEAN CORPUSCULAR VOLUME 92.8 fl (80.0-96.0); PLATELET COUNT, AUTOMATED 276 10^3/uL (150-450); WHITE BLOOD COUNT 5.2 10^3/uL (4.0-10.0)
[2021-11-06] MEDS ORDERED: BUPIVACAINE HCL 0.25% 30ML VIAL As Ordered ONE (07:09)
[2021-11-06] MEDS ORDERED: ceFAZolin SOD 2 GM in IV 1 EA IV ONE (07:20)
[2021-11-06] MEDS ORDERED: ACETAMINOPHEN *IV* 1,000 MG IV ONE ×2 (07:25)
[2021-11-06] MEDS ORDERED: ONDANSETRON 4MG/2ML VIAL As Ordered ONE (07:50)
[2021-11-06] MEDS ORDERED: LIDOCAINE 2% 100MG/5ML SDV (FOR ANES.) As Ordered ONE (07:50)
[2021-11-06] MEDS ORDERED: ROCURONIUM BROMIDE 50 MG/5 ML VIAL As Ordered ONE ×2 (07:50→08:57)
[2021-11-06] MEDS ORDERED: fentaNYL 250 MCG/5 ML INJECTION As Ordered ONE (07:50)
[2021-11-06] MEDS ORDERED: dexameTHASONE 4 MG/ML 1ML VIAL (J1100 PER 1MG) As Ordered ONE (07:50)
[2021-11-06] MEDS ORDERED: ACETAMINOPHEN 1000MG 100ML IV BTL (OFIRMEV) (J0131 PER 10MG) As Ordered ONE (07:50)
[2021-11-06] MEDS ORDERED: MIDAZOLAM INJ 2MG/2ML VIAL (J2250 PER 1MG) As Ordered ONE (07:50)
[2021-11-06] MEDS ORDERED: SUGAMMADEX SODIUM 500 MG/5 ML VIAL (BRIDION) As Ordered ONE (08:01)
[2021-11-06] MEDS ORDERED: HYDROmorphone HCL 2MG/ML 1ML VIAL As Ordered ONE (08:38)
[2021-11-06] MEDS ORDERED: KETOROLAC 60MG 2ML VIAL As Ordered ONE (11:06)
[2021-11-06] MEDS ORDERED: ONDANSETRON 4MG/2ML VIAL IV PRN ×2 (11:30→12:00)
[2021-11-06] MEDS ORDERED: PROMETHAZINE 25 MG TAB PO PRN (12:00)
[2021-11-06] MEDS ORDERED: oxyCODONE 5MG TAB PO PRN ×2 (12:00)
[2021-11-06] MEDS: oxyCODONE 5MG TAB PO PRN ×2 (12:11→12:40)
[2021-11-06] MEDS: fentaNYL 100 MCG/2 ML INJECTION IV PRN ×4 (12:12→12:30)
[2021-11-06] MEDS: HYDROMORPHONE HCL 0.5 MG/ 0.5 ML SYRINGE (J1170 PER 1) IV PRN ×4 (12:35→12:57)
[2021-11-06] MEDS: LR 1,000 ML IV SCH ×2 (16:25→23:25)
[2021-11-06] MEDS: ACETAMINOPHEN 500 MG TAB PO SCH ×2 (16:26→21:32)
[2021-11-06] MEDS: KETOROLAC 30 MG/ML 1ML VIAL IV SCH ×2 (17:18→23:26)
[2021-11-06] MEDS: SIMETHICONE 80MG CHEW TAB PO PRN (22:18)
[2021-11-07] VITALS: BP 128/71
[2021-11-07] MEDS: ACETAMINOPHEN 500 MG TAB PO SCH ×4 (03:47→21:58)
[2021-11-07 04:00] VITALS: BP 121/68
[2021-11-07] MEDS: KETOROLAC 30 MG/ML 1ML VIAL IV SCH ×2 (05:13→11:19)
[2021-11-07 06:58] LABS: BASO % 0.3 % (0.0-1.0); EOS % 0.1 % (0.0-3.0); HEMATOCRIT 30.6 % (36.0-47.0); HEMOGLOBIN 9.4 g/dl (12.0-15.5); LYMPH # 1.4 10^3/uL (1.5-5.0); LYMPH % 13.3 % (24.0-44.0); MEAN CORPUSCULAR HEMOGLOBIN 28.7 pg (27.0-33.0); MEAN CORPUSCULAR HGB CONC 30.7 g/dl (32.0-36.5); MEAN CORPUSCULAR VOLUME 93.6 fl (80.0-96.0); MONO # 0.7 10^3/uL (0.0-0.8); MONO % 6.7 % (2.0-8.0); NEUTROPHILS # 8.5 10^3/uL (1.5-8.5); NEUTROPHILS % 79.3 % (36.0-66.0); PLATELET COUNT, AUTOMATED 248 10^3/uL (150-450); RED BLOOD COUNT 3.27 10^6/uL (4.00-5.40); WHITE BLOOD COUNT 10.7 10^3/uL (4.0-10.0)
[2021-11-07] MEDS: LR 1,000 ML IV SCH (07:00)
[2021-11-07 09:00] VITALS: BP 117/70
[2021-11-07] MEDS: SIMETHICONE 80MG CHEW TAB PO PRN (09:05)
[2021-11-07 12:30] VITALS: BP 120/77
[2021-11-07 16:15] VITALS: BP 119/74
[2021-11-07] MEDS: IBUPROFEN 800 MG TAB PO SCH (18:52)
[2021-11-07 20:00] VITALS: BP 124/74
[2021-11-08] VITALS: BP 114/71
[2021-11-08] MEDS: ACETAMINOPHEN 500 MG TAB PO SCH ×2 (03:15→09:54)
[2021-11-08] MEDS: IBUPROFEN 800 MG TAB PO SCH ×2 (03:18→11:05)
[2021-11-08 04:00] VITALS: BP 112/75
[2021-11-08] MEDS ORDERED: IBUP80TA PO (05:23)
[2021-11-08] MEDS ORDERED: MIRA1POW3 PO (05:23)
[2021-11-08] MEDS ORDERED: ACET-907 PO (05:23)
[2021-11-08] MEDS ORDERED: OXYC-517 PO (05:23)
[2021-11-08 09:15] VITALS: BP 127/82
== END 2021-11-08 11:40 | disposition home or self-care (01) | DRG 743 ==
LOC: M SDC 05:59 → EDSTATUS 07:30 → M PED 13:34 → M SDC 11-07 15:22
PROVIDERS: ADMIT Obstetrics & Gynecology; ATTEND Obstetrics & Gynecology
PROC: 0UTC0ZZ Resection of Cervix, Open Approach (ICD-10-PCS; 2021-11-06)
PROC: 0UT20ZZ Resection of Bilateral Ovaries, Open Approach (ICD-10-PCS; 2021-11-06)
PROC: 0UT90ZZ Resection of Uterus, Open Approach (ICD-10-PCS; principal; 2021-11-06 07:30)
DX: N80.0 Endometriosis of uterus (principal); D25.9 Leiomyoma of uterus, unspecified; N93.9 Abnormal uterine and vaginal bleeding, unspecified

== ENCOUNTER → 2023-08-01 | Outpatient (CLI) | payer OTHER ==
[~2023-08-01] MED LIST changes: +ACET-907 PO; +DICY-61 PO; -DICY10CA13 PO; +MIRA33506 PO; +OXYC-517 PO; +PERCOCET PO; +PROHANCE 279.3MG/ML 15ML VIAL ONE; +PROHANCE 279.3MG/ML 5ML VIAL ONE; +PROT1TAB2 PO
== END ==
LOC: M PLAIMG 08:19 → M MS5PR 08-05 15:10
PROVIDERS: ATTEND Family Medicine
DX: Z15.01 Genetic susceptibility to malignant neoplasm of breast (principal); Z80.3 Family history of malignant neoplasm of breast; N63.20 Unspecified lump in the left breast, unspecified quadrant; R92.30 Dense breasts, unspecified
CPT/HCPCS: A9576; C8908

== ENCOUNTER 2023-08-05 06:51 | Observation (INO) | payer OTHER, SELFPAY ==
[~2023-08-05] VITALS: Ht 180.3 cm; Wt 93.7 kg
[~2023-08-05 06:51] MED LIST changes: -PERCOCET PO; -PROHANCE 279.3MG/ML 15ML VIAL ONE; -PROHANCE 279.3MG/ML 5ML VIAL ONE
[2023-08-05] MEDS ORDERED: LR 1,000 ML IV SCH (07:00)
[2023-08-05] MEDS ORDERED: LIDOCAINE 1% SDV 5ML VIAL SC PRN (07:00)
[2023-08-05] MEDS ORDERED: ONDANSETRON 4MG 2ML VIAL As Ordered ONE (08:09)
[2023-08-05] MEDS ORDERED: propofoL 200 MG/20 ML VIAL As Ordered ONE (08:09)
[2023-08-05] MEDS ORDERED: LIDOCAINE 2% 100MG/5ML SDV (FOR ANES.) As Ordered ONE (08:09)
[2023-08-05] MEDS ORDERED: ROCURONIUM BROMIDE 50MG/5ML VIAL As Ordered ONE (08:09)
[2023-08-05] MEDS ORDERED: fentaNYL 250 MCG/5 ML INJECTION As Ordered ONE (08:09)
[2023-08-05] MEDS ORDERED: LACRILUBE (AKWA TEARS) OPHTH OINT 3.5GM As Ordered ONE (08:10)
[2023-08-05] MEDS ORDERED: MIDAZOLAM INJ 2MG/2ML VIAL As Ordered ONE (08:10)
[2023-08-05] MEDS ORDERED: dexmedeTOMIDine (4MCG/ML)200MCG/50ML BTL (PRECEDEX) As Ordered ONE (08:22)
[2023-08-05] MEDS: HEPARIN SOD (PORCINE) 5000UNITS/ML 1ML VIAL/SYRINGE SQ ONE (09:35)
[2023-08-05] MEDS: ceFAZolin SOD 2 GM in IV 1 EA IV ONE (09:49)
[2023-08-05] MEDS ORDERED: LABETALOL 100MG/20ML VIAL As Ordered ONE (09:57)
[2023-08-05] MEDS ORDERED: METOCLOPRAMIDE INJ 10MG/2ML VIAL As Ordered ONE (10:04)
[2023-08-05] MEDS ORDERED: HYDROmorphone HCL 2MG/ML 1ML VIAL As Ordered ONE (11:02)
[2023-08-05] MEDS: GENTAMICIN SULF 80MG/2ML VIAL As Ordered ONE (11:51)
[2023-08-05] MEDS: LIDOCAINE W/EPINEPHRINE 1% 20ML VIAL As Ordered ONE (11:52)
[2023-08-05] MEDS ORDERED: ACETAMINOPHEN 1000MG 100ML IV BAG As Ordered ONE (12:04)
[2023-08-05] MEDS ORDERED: SUGAMMADEX SODIUM 500 MG/5 ML VIAL (BRIDION) As Ordered ONE (12:07)
[2023-08-05] MEDS: EPINEPHrine INJ 1 MG/ML 1ML AMP As Ordered ONE (12:18)
[2023-08-05] MEDS: LIDOCAINE 1% MDV 20ML VIAL As Ordered ONE (12:18)
[2023-08-05] MEDS: ceFAZolin 2 GM/D5W 50 ML IV BAG As Ordered ONE (12:34)
[2023-08-05] MEDS: HEPARIN SOD (PORCINE) 5000UNITS/ML 1ML VIAL/SYRINGE As Ordered ONE (12:34)
[2023-08-05] MEDS ORDERED: ONDANSETRON 4MG 2ML VIAL IV PRN (13:30)
[2023-08-05] MEDS ORDERED: fentaNYL 100 MCG/2 ML INJECTION IV PRN (13:30)
[2023-08-05] MEDS: LR 1,000 ML IV SCH ×2 (13:30→17:12)
[2023-08-05] MEDS: HYDROMORPHONE HCL 0.5 MG/ 0.5 ML SYRINGE IV PRN (14:04)
[2023-08-05] MEDS: oxyCODONE 5MG TAB PO PRN (14:05)
[2023-08-05 15:17] VITALS: BP 130/81; TEMP 97.2; O2SAT 100
[2023-08-05 15:45] VITALS: BP 111/66; TEMP 97.5; O2SAT 100
[2023-08-05 16:34] VITALS: BP 113/70; TEMP 97.7; O2SAT 100
[2023-08-05 17:02] VITALS: BP 113/71; TEMP 97.9; O2SAT 98
[2023-08-05] MEDS: ACETAMINOPHEN TAB 650MG DOSE (2X325MG) PO PRN (17:11)
[2023-08-05] MEDS: ceFAZolin SOD 1 GM in D5W MINI-BAG PLUS 50 ML IV SCH (17:11)
[2023-08-05] MEDS: traMADol 50 MG TAB PO PRN (19:02)
[2023-08-05] MEDS: ONDANSETRON 4MG 2ML VIAL IV PRN (19:09)
[2023-08-05 19:43] VITALS: BP 131/79; TEMP 97.5; O2SAT 97
[2023-08-05 23:10] VITALS: BP 125/76; TEMP 97.7; O2SAT 96
[2023-08-06] MEDS: PERCOCET 5MG/325MG TAB PO PRN (01:50)
[2023-08-06 05:20] VITALS: BP 127/75; TEMP 98.1; O2SAT 99
[2023-08-06 07:52] LABS: HEMATOCRIT 34.5 % (36.0-47.0); HEMOGLOBIN 11.1 g/dl (12.0-15.5); MEAN CORPUSCULAR HEMOGLOBIN 30.9 pg (27.0-33.0); MEAN CORPUSCULAR HGB CONC 32.2 g/dl (32.0-36.5); MEAN CORPUSCULAR VOLUME 96.1 fl (80.0-96.0); PLATELET COUNT, AUTOMATED 241 10^3/uL (150-450); RED BLOOD COUNT 3.59 10^6/uL (4.00-5.40); WHITE BLOOD COUNT 6.6 10^3/uL (4.0-10.0)
[2023-08-06] MEDS ORDERED: PERCOCET PO (12:03)
== END 2023-08-06 14:40 | disposition home or self-care (01) ==
LOC: M SDC 06:51 → M ED INP 06:52 → M MS5PR 15:10
PROVIDERS: ADMIT Plastic Surgery Surgery of the Hand; ATTEND Plastic Surgery Surgery of the Hand
DX: M54.07 Panniculitis affecting regions of neck and back, lumbosacral region (principal); K57.92 Diverticulitis of intestine, part unspecified, without perforation or abscess without bleeding; K58.8 Other irritable bowel syndrome; D64.9 Anemia, unspecified
CPT/HCPCS: 15830; 15877; 36415; 85027; 87635; 88300; 96365; 96366; 96375; C9290; J0131; J0171; J0665; J0690; J1100; J1170; J1580; J1920; J2250; J2405; J2765; J3010

== ENCOUNTER 2023-08-28 21:48 | Emergency (ER) | payer OTHER ==
[~2023-08-28] VITALS: Ht 180.3 cm; Wt 94.4 kg
[~2023-08-28 21:48] MED LIST changes: +PERCOCET PO
[2023-08-28 23:02] LABS: BASO # 0.1 10^3/uL (0.0-0.2); BASO % 1.3 % (0.0-1.0); EOS # 0.3 10^3/uL (0.0-0.5); EOS % 6.6 % (0.0-3.0); HEMATOCRIT 36.2 % (36.0-47.0); HEMOGLOBIN 11.6 g/dl (12.0-15.5); LYMPH % 42.1 % (24.0-44.0); MEAN CORPUSCULAR HEMOGLOBIN 30.9 pg (27.0-33.0); MEAN CORPUSCULAR VOLUME 96.5 fl (80.0-96.0); MONO # 0.3 10^3/uL (0.0-0.8); MONO % 7.2 % (2.0-8.0); NEUTROPHILS % 42.6 % (36.0-66.0); PLATELET COUNT, AUTOMATED 321 10^3/uL (150-450); RED BLOOD COUNT 3.75 10^6/uL (4.00-5.40); WHITE BLOOD COUNT 4.7 10^3/uL (4.0-10.0)
[2023-08-28 23:18] LABS: ALBUMIN 3.7 G/DL (3.2-5.2); ALKALINE PHOSPHATASE 82 U/L (46-116); ALT/SGPT 18 U/L (7.0-40); AST/SGOT 17 U/L (<34); BILIRUBIN,TOTAL 0.4 MG/DL (0.3-1.2); BLOOD UREA NITROGEN 5 MG/DL (9-23); CALCIUM LEVEL 9.2 MG/DL (8.5-10.1); CARBON DIOXIDE LEVEL 27 MMOL/L (20-31); CHLORIDE LEVEL 107 MMOL/L (98-107); CREATININE FOR GFR 0.74 MG/DL (0.55-1.30); GLOMERULAR FILTRATION RATE > 60.0 (>58); GLUCOSE, FASTING 116 MG/DL (60-100); SODIUM LEVEL 142 MMOL/L (136-145)
[2023-08-29 01:38] VITALS: O2SAT 97
[2023-08-29 01:45] VITALS: BP 139/81
[2023-08-29 01:55] VITALS: TEMP 97.5
== END 2023-08-29 01:56 | disposition home or self-care (01) ==
LOC: M ED 21:48
DX: M79.662 Pain in left lower leg (principal); K57.92 Diverticulitis of intestine, part unspecified, without perforation or abscess without bleeding; Z87.19 Personal history of other diseases of the digestive system

== ENCOUNTER 2023-10-09 01:37 | Emergency (ER) | payer OTHER ==
[~2023-10-09] VITALS: Ht 180.3 cm; Wt 93.7 kg
[2023-10-09 03:56] VITALS: BP 156/88; TEMP 100.4; O2SAT 97
[2023-10-09] MEDS: BENZONATATE 100MG CAPSULE PO ONE (06:09)
[2023-10-09] MEDS: ACETAMINOPHEN TAB 650MG DOSE (2X325MG) PO ONE (06:09)
[2023-10-09] MEDS: predniSONE 20 MG TAB PO ONE (06:09)
[2023-10-09] MEDS ORDERED: BENZ200C70 PO (06:29)
[2023-10-09] MEDS ORDERED: PRED20TA PO (06:29)
[2023-10-09] MEDS: ALBUTEROL 90 MCG/ACT 8GM HFA INHALER INH ONE (06:45)
== END 2023-10-09 06:57 | disposition home or self-care (01) ==
LOC: M ED 01:37
DX: J20.9 Acute bronchitis, unspecified (principal); K57.92 Diverticulitis of intestine, part unspecified, without perforation or abscess without bleeding; F10.10 Alcohol abuse, uncomplicated; Z79.52 Long term (current) use of systemic steroids; Z79.811 Long term (current) use of aromatase inhibitors
CPT/HCPCS: 71046; 87486; 87581; 87633; 87798; 99284; J7512

== ENCOUNTER → 2023-10-15 | Outpatient (CLI) | payer OTHER ==
[~2023-10-15] MED LIST changes: +BENZ200C70 PO
== END ==
LOC: M WHC 12:46
PROVIDERS: ATTEND Family Medicine
DX: N63.23 Unspecified lump in the left breast, lower outer quadrant (principal)

== ENCOUNTER → 2023-11-06 | Outpatient (CLI) | payer OTHER ==
[2023-11-06 13:30] VITALS: TEMP 98.1
[2023-11-06 14:05] VITALS: BP 132/88; O2SAT 99
== END ==
LOC: M WHCPRO 10:30
PROVIDERS: ATTEND Family Medicine
DX: N63.23 Unspecified lump in the left breast, lower outer quadrant (principal)

== ENCOUNTER → 2024-02-16 | Outpatient (CLI) | payer OTHER ==
[~2024-02-16] MED LIST changes: +ISOVUE-370 76% 100ML VIAL As Ordered ONE
== END ==
LOC: M RAD 14:57
PROVIDERS: ATTEND Otolaryngology
DX: R49.0 Dysphonia (principal)
CPT/HCPCS: 70491; Q9967

== ENCOUNTER → 2024-03-03 | Outpatient (CLI) | payer OTHER ==
[~2024-03-03] MED LIST changes: +E-Z-GAS II EFFERVESCENT PACKET (SODIUM BICARB./CITRIC ACID/SIMETHICONE) As Ordered ONE; +E-Z-HD 98% w/w 340GM SUSP BTL As Ordered ONE; +E-Z-PAQUE 96% w/w SUSP 176GM BTL As Ordered ONE; -ISOVUE-370 76% 100ML VIAL As Ordered ONE
== END ==
LOC: M RAD 10:13
PROVIDERS: ATTEND Otolaryngology
DX: F45.8 Other somatoform disorders (principal)

== ENCOUNTER 2024-04-05 13:49 | Emergency (ER) | payer OTHER ==
[~2024-04-05] VITALS: Ht 180.3 cm; Wt 91.2 kg
[~2024-04-05 13:49] MED LIST changes: -E-Z-GAS II EFFERVESCENT PACKET (SODIUM BICARB./CITRIC ACID/SIMETHICONE) As Ordered ONE; -E-Z-HD 98% w/w 340GM SUSP BTL As Ordered ONE; -E-Z-PAQUE 96% w/w SUSP 176GM BTL As Ordered ONE
[2024-04-05 14:50] LABS: BASO % 0.6 % (0.0-1.0); EOS # 0.1 10^3/uL (0.0-0.5); EOS % 1.4 % (0.0-3.0); HEMATOCRIT 40.3 % (36.0-47.0); HEMOGLOBIN 13.2 g/dl (12.0-15.5); LYMPH # 1.4 10^3/uL (1.5-5.0); LYMPH % 28.7 % (24.0-44.0); MEAN CORPUSCULAR HEMOGLOBIN 31.1 pg (27.0-33.0); MEAN CORPUSCULAR HGB CONC 32.8 g/dl (32.0-36.5); MEAN CORPUSCULAR VOLUME 94.8 fl (80.0-96.0); MONO # 0.3 10^3/uL (0.0-0.8); MONO % 5.7 % (2.0-8.0); NEUTROPHILS # 3.1 10^3/uL (1.5-8.5); NEUTROPHILS % 63.6 % (36.0-66.0); PLATELET COUNT, AUTOMATED 296 10^3/uL (150-450); RED BLOOD COUNT 4.25 10^6/uL (4.00-5.40); WHITE BLOOD COUNT 4.9 10^3/uL (4.0-10.0)
[2024-04-05] MEDS ORDERED: RHUB4TAB PO (14:54)
[2024-04-05] MEDS ORDERED: BISO5TAB14 PO (14:54)
[2024-04-05 15:21] LABS: ALKALINE PHOSPHATASE 65 U/L (35-104); ALT/SGPT 18 U/L (7.0-40); AST/SGOT 17 U/L (<34); BILIRUBIN,DIRECT 0.2 MG/DL (<0.4); BILIRUBIN,TOTAL 0.8 MG/DL (0.3-1.2); BLOOD UREA NITROGEN 13 MG/DL (9-23); CARBON DIOXIDE LEVEL 28 MMOL/L (20-31); CHLORIDE LEVEL 105 MMOL/L (98-107); CK-MB VALUE MASS 1.2 NG/ML (<3.6); CREATININE FOR GFR 0.77 MG/DL (0.55-1.30); GLOMERULAR FILTRATION RATE > 60.0 (>51); GLUCOSE, FASTING 81 MG/DL (60-100); POTASSIUM SERUM 4.2 MMOL/L (3.5-5.1); SODIUM LEVEL 138 MMOL/L (136-145); TOTAL PROTEIN 7.5 G/DL (5.7-8.2)
[2024-04-05 15:24] LABS: THYROID STIMULATING HORMONE 1.488 uIU/ML (0.55-4.78)
[2024-04-05 15:27] LABS: CPK CREATINE PHOSPHOKINASE 123 U/L (34-145); MB/CK RELATIVE INDEX 0.97 (< OR =4)
[2024-04-05 15:29] LABS: OSMOLALITY SERUM 291 MOSM/KG (275-295)
[2024-04-05 16:07] LABS: CK-MB VALUE MASS < 1.0 NG/ML (<3.6)
[2024-04-05 16:16] LABS: CPK CREATINE PHOSPHOKINASE 120 U/L (34-145); MB/CK RELATIVE INDEX 0.83 (< OR =4)
[2024-04-05] MEDS ORDERED: ISOVUE-370 76% 100ML VIAL As Ordered ONE (18:00)
[2024-04-05] MEDS ORDERED: HOLTER MONITOR XX (18:39)
[2024-04-05 19:04] VITALS: BP 134/82; TEMP 97.8; O2SAT 80
[2024-04-06] MEDS ORDERED: HOLTER MONITOR XX (13:22)
== END 2024-04-05 19:15 | disposition home or self-care (01) ==
LOC: M ED 13:49
DX: R20.2 Paresthesia of skin (principal); R00.2 Palpitations; M50.321 Other cervical disc degeneration at C4-C5 level; M50.221 Other cervical disc displacement at C4-C5 level; Z79.899 Other long term (current) drug therapy
CPT/HCPCS: 36415; 70450; 70551; 71045; 71275; 72141; 80048; 80076; 82140; 82550; 82553; 83930; 84443; 84484; 85025; 93005; 93041; 94760; 99285; Q9967

== ENCOUNTER → 2024-04-06 | Outpatient (CLI) | payer OTHER ==
[~2024-04-06] MED LIST changes: +BISO5TAB14 PO; +HOLTER MONITOR XX; +RHUB4TAB PO
== END ==
LOC: M EKG 13:27
PROVIDERS: ATTEND Emergency Medicine
DX: R00.2 Palpitations (principal)

== ENCOUNTER 2024-05-03 10:54 | Day surgery (SDC) | payer OTHER ==
[~2024-05-03] VITALS: Ht 180.3 cm; Wt 90.7 kg
[~2024-05-03 10:54] MED LIST changes: +NS 250 ML IV ONE
[2024-05-03] MEDS ORDERED: LIDOCAINE 2% 100MG/5ML SDV (FOR ANES.) As Ordered ONE (13:35)
[2024-05-03] MEDS ORDERED: propofoL 200 MG/20 ML VIAL As Ordered ONE (13:35)
[2024-05-03 13:50] VITALS: TEMP 97.7
[2024-05-03 14:05] VITALS: BP 122/77; O2SAT 100
== END 2024-05-03 14:35 | disposition home or self-care (01) ==
LOC: M OPP 10:54
PROVIDERS: ATTEND Internal Medicine Gastroenterology
DX: K21.00 Gastro-esophageal reflux disease with esophagitis, without bleeding (principal); K22.89 Other specified disease of esophagus; I10 Essential (primary) hypertension; M19.90 Unspecified osteoarthritis, unspecified site; K58.9 Irritable bowel syndrome, unspecified

== ENCOUNTER 2024-08-20 13:51 | Emergency (ER) | payer OTHER ==
[~2024-08-20] VITALS: Ht 180.3 cm; Wt 94.1 kg
[~2024-08-20 13:51] MED LIST changes: -NS 250 ML IV ONE
[2024-08-20] MEDS ORDERED: IBUP200T46 PO (14:07)
[2024-08-20] MEDS ORDERED: MEDR4PAK PO (17:38)
[2024-08-20 17:44] VITALS: BP 168/90; TEMP 99.1; O2SAT 98
[2024-08-20] MEDS ORDERED: METH-1164 PO (17:49)
[2024-08-20] MEDS: KETOROLAC 30 MG/ML 1ML VIAL IM ONE (17:56)
== END 2024-08-20 17:59 | disposition home or self-care (01) ==
LOC: M ED 13:51
DX: M75.31 Calcific tendinitis of right shoulder (principal); I10 Essential (primary) hypertension; R51.9 Headache, unspecified; F43.20 Adjustment disorder, unspecified; Z87.19 Personal history of other diseases of the digestive system; Z79.1 Long term (current) use of non-steroidal anti-inflammatories (NSAID); Z79.899 Other long term (current) drug therapy
CPT/HCPCS: 73030; 96372; 99283; J1885

== ENCOUNTER 2024-09-23 06:57 | Emergency (ER) | payer OTHER ==
[~2024-09-23] VITALS: Ht 180.3 cm; Wt 90.4 kg
[~2024-09-23 06:57] MED LIST changes: +IBUP200T46 PO; +MEDR4PAK PO; +METH-1164 PO
[2024-09-23] MEDS: PANTOPRAZOLE 40MG VIAL IV ONE (08:34)
[2024-09-23] MEDS: ACETAMINOPHEN *IV* 1,000 MG in IV 1 EA IV ONE (08:35)
[2024-09-23 08:37] LABS: BASO % 0.7 % (0.0-1.0); EOS # 0.2 10^3/uL (0.0-0.5); EOS % 3.5 % (0.0-3.0); HEMATOCRIT 41.7 % (36.0-47.0); HEMOGLOBIN 13.6 g/dl (12.0-15.5); LYMPH # 1.2 10^3/uL (1.5-5.0); LYMPH % 26.9 % (24.0-44.0); MEAN CORPUSCULAR HEMOGLOBIN 30.6 pg (27.0-33.0); MEAN CORPUSCULAR HGB CONC 32.6 g/dl (32.0-36.5); MEAN CORPUSCULAR VOLUME 93.9 fl (80.0-96.0); MONO # 0.2 10^3/uL (0.0-0.8); MONO % 5.6 % (2.0-8.0); NEUTROPHILS # 2.7 10^3/uL (1.5-8.5); NEUTROPHILS % 63.3 % (36.0-66.0); PLATELET COUNT, AUTOMATED 293 10^3/uL (150-450); RED BLOOD COUNT 4.44 10^6/uL (4.00-5.40); WHITE BLOOD COUNT 4.3 10^3/uL (4.0-10.0)
[2024-09-23 09:05] LABS: LIPASE 26 U/L (12-53)
[2024-09-23 09:06] LABS: KETONE, URINE AUTO RFX NEGATIVE (NEGATIVE); LEUKOCYTE ESTERASE UR AUTO RFX 2+ (NEGATIVE); NITRITE, URINE AUTO RFX NEGATIVE (NEGATIVE); RBC, URINE AUTO RFX 2 /HPF (0-3); SQUAM EPITHELIAL CELL UR AURFX 2 /HPF (0-6); WBC, URINE AUTO RFX 12 /HPF (0-3)
[2024-09-23 09:08] LABS: ALBUMIN 4.2 G/DL (3.2-5.2); ALKALINE PHOSPHATASE 70 U/L (35-104); ALT/SGPT 24 U/L (7.0-40); AST/SGOT 28 U/L (<34); BILIRUBIN,DIRECT 0.2 MG/DL (<0.4); BILIRUBIN,TOTAL 0.8 MG/DL (0.3-1.2); BLOOD UREA NITROGEN 8 MG/DL (9-23); CALCIUM LEVEL 9.6 MG/DL (8.5-10.1); CARBON DIOXIDE LEVEL 30 MMOL/L (20-31); CHLORIDE LEVEL 104 MMOL/L (98-107); CREATININE FOR GFR 0.76 MG/DL (0.55-1.30); GLOMERULAR FILTRATION RATE > 90.0 (>51); GLUCOSE, FASTING 88 MG/DL (60-100); SODIUM LEVEL 142 MMOL/L (136-145); TOTAL PROTEIN 7.8 G/DL (5.7-8.2)
[2024-09-23] MEDS ORDERED: ISOVUE-370 76% 100ML VIAL As Ordered ONE (09:53)
[2024-09-23] MEDS: KETOROLAC 30 MG/ML 1ML VIAL IV ONE (10:13)
[2024-09-23] MEDS ORDERED: PROT1TAB2 PO (10:53)
[2024-09-23] MEDS ORDERED: CEFD1CAP9 PO (10:54)
[2024-09-23 11:02] VITALS: BP 120/82; TEMP 97.2; O2SAT 100
== END 2024-09-23 11:16 | disposition home or self-care (01) ==
LOC: M ED 06:57
DX: R10.11 Right upper quadrant pain (principal); K29.70 Gastritis, unspecified, without bleeding; K76.0 Fatty (change of) liver, not elsewhere classified; R82.71 Bacteriuria; K57.30 Diverticulosis of large intestine without perforation or abscess without bleeding; E55.9 Vitamin D deficiency, unspecified; Z79.2 Long term (current) use of antibiotics; Z79.899 Other long term (current) drug therapy; Z79.1 Long term (current) use of non-steroidal anti-inflammatories (NSAID)
CPT/HCPCS: 74177; 76705; 80048; 80076; 81001; 83690; 85025; 87086; 96365; 96375; 99284; J0131; J1885; J2470; Q9967

== ENCOUNTER → 2025-02-07 | Outpatient (CLI) | payer OTHER ==
[~2025-02-07] MED LIST changes: +CEFD1CAP9 PO
== END ==
LOC: M CARPUL 13:54
PROVIDERS: ATTEND Student in an Organized Health Care Education/Training Program
DX: R06.00 Dyspnea, unspecified (principal)

== ENCOUNTER 2025-02-09 04:32 | Emergency (ER) | payer OTHER ==
[~2025-02-09] VITALS: Ht 180.3 cm; Wt 84.2 kg
[2025-02-09 04:52] LABS: BASO # 0.1 10^3/uL (0.0-0.2); BASO % 0.8 % (0.0-1.0); EOS # 0.3 10^3/uL (0.0-0.5); EOS % 4.9 % (0.0-3.0); LYMPH # 2.5 10^3/uL (1.5-5.0); LYMPH % 37.8 % (24.0-44.0); MONO # 0.4 10^3/uL (0.0-0.8); MONO % 6.7 % (2.0-8.0); NEUTROPHILS # 3.3 10^3/uL (1.5-8.5); NEUTROPHILS % 49.6 % (36.0-66.0); PLATELET COUNT, AUTOMATED 286 10^3/uL (150-450)
[2025-02-09 05:11] LABS: INR 0.96
[2025-02-09 05:15] LABS: CK-MB VALUE MASS 2.0 NG/ML (<3.6)
[2025-02-09 05:16] LABS: ALT/SGPT 24 U/L (7.0-40); AST/SGOT 28 U/L (<34); CALCIUM LEVEL 9.3 MG/DL (8.5-10.1); CARBON DIOXIDE LEVEL 28 MMOL/L (20-31); CHLORIDE LEVEL 102 MMOL/L (98-107); CREATININE FOR GFR 0.81 MG/DL (0.55-1.30); GLOMERULAR FILTRATION RATE 87.8 (>51); POTASSIUM SERUM 3.7 MMOL/L (3.5-5.1); SODIUM LEVEL 137 MMOL/L (136-145)
[2025-02-09 05:20] LABS: CPK CREATINE PHOSPHOKINASE 134 U/L (34-145); MB/CK RELATIVE INDEX 1.49 (< OR =4)
[2025-02-09] MEDS ORDERED: KETOROLAC 30 MG/ML 1 ML VIAL IV ONE (10:30)
[2025-02-09] MEDS: IBUPROFEN 600 MG TAB PO ONE (10:56)
[2025-02-09 11:00] VITALS: BP 115/75; TEMP 97.1; O2SAT 98
== END 2025-02-09 11:05 | disposition home or self-care (01) ==
LOC: M ED 08:23
DX: R07.9 Chest pain, unspecified (principal); K21.9 Gastro-esophageal reflux disease without esophagitis; I10 Essential (primary) hypertension; K57.30 Diverticulosis of large intestine without perforation or abscess without bleeding; E55.9 Vitamin D deficiency, unspecified; Z79.2 Long term (current) use of antibiotics; Z79.1 Long term (current) use of non-steroidal anti-inflammatories (NSAID); Z79.899 Other long term (current) drug therapy